=== PATIENT | female | born 1990 | race African-American/Black ===

== ENCOUNTER 2016-03-07 10:56 | Emergency (ER) | payer MEDICAID ==
[2016-03-07 11:06] VITALS: BP 131/74
--- NOTE | 2016-03-07 11:43 | ER Document Report ---
ED Medical Screen (RME) - General Chief Complaint: Pain With Urination Stated Complaint: POSSIBLE UTI Time seen by provider: 11:41 Mode of Arrival: Ambulatory Information source: Patient Notes: 25 yo female presents to ed for frequency urgency and burning today is second day. TRAVEL OUTSIDE OF THE [place] IN LAST 30 DAYS: No - HPI Onset: Yesterday Onset/Duration: Gradual, Worse Quality of pain: Burning Associated Symptoms: Other - urinary symptoms Exacerbated by: Other - urinaiton - Related Data Allergies/Adverse Reactions: No Known Allergies Allergy (Verified 03/07/16 11:07) Past Medical History Past Surgical History: Reports: Hx Orthopedic Surgery - L knee - Immunizations Hx Diphtheria, Pertussis, Tetanus Vaccination: No Physical Exam - Vital signs Vitals: Temp Pulse Resp BP Pulse Ox 98.1 F 89 18 131/74 H 100 03/07/16 11:05 03/07/16 11:05 03/07/16 11:05 03/07/16 11:05 03/07/16 11:05 Course - Vital Signs Vital signs: Temp Pulse Resp BP Pulse Ox 98.1 F 89 18 131/74 H 100 03/07/16 11:05 03/07/16 11:05 03/07/16 11:05 03/07/16 11:05 03/07/16 11:05
[2016-03-07 12:17] LABS: APPEARANCE,URINE CLEAR; BILIRUBIN,URINE NEGATIVE (NEGATIVE); GLUCOSE, URINE NEGATIVE (NEGATIVE); KETONES,URINE NEGATIVE (NEGATIVE); LEUKOCYTE ESTERASE,URINE MODERATE (NEGATIVE); NITRITE,URINE NEGATIVE (NEGATIVE); PROTEIN,URINE NEGATIVE (NEGATIVE); URINE SPECIFIC GRAVITY 1.004; UROBILINOGEN,URINE NEGATIVE mg/dL (<2.0)
[2016-03-07] MEDS ORDERED: PHENAZOPYRIDINE HCL 200 MG TABLET PO ONE (13:31)
--- NOTE | 2016-03-07 13:34 | ER Document Report ---
HPI - HPI Patient complains to provider of: pain with urination Onset: Yesterday Onset/Duration: Gradual, Persistent Quality of pain: Burning Pain Level: 5 Associated Symptoms: Other - Pain with urination Exacerbated by: Other - Urination Relieved by: Denies Similar symptoms previously: Yes Recently seen / treated by doctor: No - ROS ROS below otherwise negative: Yes - CONSTITUTIONAL Constitutional: DENIES: Fever, Chills - EENT EENT: DENIES: Sore Throat, Ear Pain, Nasal Drainage-Clear, Nasal Drainage- Purulent, Congestion, Eye problems - NEURO Neurology: DENIES: Headache, Weakness, Vision blurred, Dizzinesss / Vertigo - CARDIOVASCULAR Cardiovascular: DENIES: Chest pain - RESPIRATORY Respiratory: DENIES: Trouble Breathing, Coughing - GASTROINTESTINAL Gastrointestinal: DENIES: Abdominal Pain, Nausea, Patient vomiting, Diarrhea, Constipation, Black / Bloody Stools - URINARY Urinary: REPORTS: Dysuria - REPRODUCTIVE Reproductive: REPORTS: : - MUSCULOSKELETAL Musculoskeletal: DENIES: Extremity pain, Back Pain, Neck Pain, Swelling - DERM Skin Color: Normal Skin Problems: None - NURSING COMMENTS Comment: patient reports havin pain with urination and shalini low abd pain Past Medical History - General Information source: Patient - Social History Smoking Status: Current Every Day Smoker Cigarette use (# per day): Yes - 4 cigarettes a day Chew tobacco use (# tins/day): No Smoking Education Provided: Yes - less than 1 minute Frequency of alcohol use: Rare Drug Abuse: None Occupation: [employer] Lives with: Parents Family History: Hypertension - Medical History Medical History: Negative - Past Medical History Cardiac Medical History: Reports: None Pulmonary Medical History: Reports: None EENT Medical History: Reports: None Neurological Medical History: Reports: None Endocrine Medical History: Reports: None Renal/ Medical History: Reports: None Malignancy Medical History: Reports: None GI Medical History: Reports: None Musculoskeltal Medical History: Reports Hx Musculoskeletal Deformity, Reports Hx Musculoskeletal Trauma Skin Medical History: Reports None Traumatic Medical History: Reports: None Infectious Medical History: Reports: None Past Surgical History: Reports: Hx Orthopedic Surgery - L knee - Immunizations Hx Diphtheria, Pertussis, Tetanus Vaccination: No Vertical Provider Document - CONSTITUTIONAL Agree With Documented VS: Yes Exam Limitations: No Limitations General Appearance: WD/WN - INFECTION CONTROL TRAVEL OUTSIDE OF THE [place] IN LAST 30 DAYS: No - HEENT HEENT: Atraumatic, Normal ENT Exam, Normocephalic, PERRLA - NECK Neck: Normal Inspection, Supple - RESPIRATORY Respiratory: Breath Sounds Normal, No Respiratory Distress O2 Sat by Pulse Oximetry: 100 - CARDIOVASCULAR Cardiovascular: Regular Rate, Regular Rhythm - GI/ABDOMEN Gastrointestinal: Abdomen Soft, Abdomen Tender, No Organomegaly - Suprapubic, Normal Bowel Sounds - REPRODUCTIVE Female Genitalia: Normal Inspection - BACK Back: Normal Inspection - MUSCULOSKELETAL/EXTREMETIES Musculoskeletal/Extremeties: MAEW, FROM, Non-Tender - NEURO Level of Consciousness: Awake, Alert, Appropriate Motor/Sensory: No Motor Deficit, No Sensory Deficit, No Pronator Drift - DERM Integumentary: Warm, Dry, No Rash Course - Vital Signs Vital signs: Temp Pulse Resp BP Pulse Ox 98.1 F 89 18 131/74 H 100 03/07/16 11:05 03/07/16 11:05 03/07/16 11:05 03/07/16 11:05 03/07/16 11:05 - Laboratory Laboratory results interpreted by me: 03/07/16 11:52 Ur Leukocyte Esterase MODERATE H Discharge - Discharge Clinical Impression: UTI (urinary tract infection) Qualifiers: Urinary tract infection type: site unspecified Hematuria presence: without hematuria Qualified Code(s): N39.0 - Urinary tract infection, site not specified Condition: Stable Disposition: HOME, SELF-CARE Additional Instructions: URINARY TRACT INFECTION: Your evaluation indicates that you have a urinary tract infection. This is due to germs growing in the bladder. This is a common problem. This infection usually responds quickly to antibiotics. Your antibiotic should be taken exactly as prescribed. Drink plenty of fluids -- three to four quarts a day. Occasionally, a bladder anesthetic will be prescribed to help stop the feeling of urgency until the antibiotic has a chance to clear the infection. This may cause your urine to be dark orange. Certain urine infections require a culture. If the doctor obtained a culture, the results will be back in two days. You should call to see if a change in treatment is needed. A repeat urinalysis after you finish treatment is often recommended. The physician will let you know if further testing is required. Call the doctor if you develop fever, chills, flank pain, inability to urinate, or blood in the urine. NITROFURANTOIN (MACRODANTIN, MACROBID): You have received a prescription for nitrofurantoin (Macrodantin). This antibiotic is used for urinary tract infections. Women who are or nursing should notify the physician before taking this medicine. If you have ever had a problem caused by this medication in the past, be sure the physician is aware of it. Common side effects of this medicine include nausea, vomiting, or decreased appetite. Notify your physician if these side effects become severe. Immediately stop this medicine and call the physician if you develop cough , shortness of breath, chest pain, weakness, jaundice (yellow color of the skin and whites of the eyes), or a skin rash. URINARY ANESTHETIC AGENT: You have been given a medication (Pyridium) for urinary tract discomfort. This medicine numbs the lining of the bladder and urethra, resulting in less pain, burning, and urgency. You may take it as needed, according to instructions. When the symptoms resolve, you can stop this medication (be sure to continue any other medications the doctor has given you). This medicine turns the urine a dark orange. It may stain underwear. Occasionally, it can cause nausea. Return for evaluation if there are any unexpected effects, such as itching, hives, or shortness of breath. FOLLOW-UP CARE: If you have been referred to a physician for follow-up care, call the physician s office for an appointment as you were instructed or within the next two days. If you experience worsening or a significant change in your symptoms, notify the physician immediately or return to the Emergency Department at any time for re-evaluation. Prescriptions: Nitrofurantoin/Nitrofuran Mac [Macrobid 100 mg Capsule] 1 tab PO BID #20 capsule Phenazopyridine HCl [Pyridium 200 mg Tablet] 200 mg PO TID #15 tablet Forms: Return to Work Referrals: JEANNA DANG MD [Primary Care Provider] - Follow up as needed
== END 2016-03-07 13:42 | disposition home or self-care (01) ==
LOC: ER 10:56
DX: N39.0 Urinary tract infection, site not specified (principal); R30.0 Dysuria; R10.30 Lower abdominal pain, unspecified; F17.210 Nicotine dependence, cigarettes, uncomplicated
CPT/HCPCS: 99283; 87086; 81025; 87088; 81001; 87186; J3490

== ENCOUNTER → 2017-03-13 | Outpatient (CLI) | payer SELFPAY ==
--- NOTE | 2017-03-13 16:36 | RADIOLOGY REPORT (SQ) ---
EXAM DESCRIPTION: U/S OB TRANSVAGINAL W/O DOP COMPLETED DATE/TIME: 03/13/2017 1:30 pm REASON FOR STUDY: 1ST TRIMESTER SIZE AND DATE Z34.81 ENCOUNTER FOR SUPRVSN OF NORMAL , FIR ST TRIM COMPARISON: None. TECHNIQUE: Transvaginal static and realtime grayscale images acquired of the pelvis. Additional amaris cted spectral and color Doppler images recorded. All images stored on PACs. bHCG: Not available LIMITATIONS: None. FINDINGS: FETUS: Living intrauterine . EGA: 8 weeks 6 days YAQUELIN: 10/17/2017 FHR: 173 beats per minute. SUBCHORIONIC BLEED: No SIZE OF BLEED: Not applicable. UTERUS: No masses. No anomalies. CERVICAL LENGTH: 2.9 cm Closed. RIGHT ADNEXA: Normal ovary with normal vascular flow. Small cyst is identified measuring 2.1 x 1.7 x 1.7 cm most consistent with a corpus lutein cyst. No free fluid is seen. LEFT ADNEXA: Normal ovary with normal vascular flow. No adnexal free fluid. No adnexal masses. FREE FLUID: None. OTHER: No other significant finding. IMPRESSION: LIVING INTRAUTERINE . EGA 8 weeks 6 days Trimester of : First - 0 to 13 weeks. TECHNICAL DOCUMENTATION: JOB ID: [id number] [employer]- All Rights Reserved
== END ==
LOC: RAD 12:30
PROVIDERS: ATTEND Nurse Practitioner Women's Health
DX: Z34.81 Encounter for supervision of other normal pregnancy, first trimester (principal)
CPT/HCPCS: 76817

== ENCOUNTER 2017-03-22 13:55 | Emergency (ER) | payer SELFPAY ==
--- NOTE | 2017-03-22 16:15 | ER Document Report ---
ED GI/ - General Chief Complaint: Vag Bleeding, +preg <12wks Stated Complaint: VAGINAL BLEEDING,BACK PAIN Time Seen by Provider: 03/22/17 16:06 Notes: Patient is a 9-1/2 weeks 26-year-old female presented emergency department with a chief complaint of vaginal bleeding that started last night. She describes the amount as light spotting today and it is approximately 1-2 tablespoons last night. She denies bleeding through multiple pads. Patient states that she did go to the health department today for evaluation related to Pap smear and exam at that is anything significant. She states she came here to have an ultrasound to confirm that her child still alive and that she is not having a miscarriage. She admits to mild pelvic cramping and mild back pain but has not taken anything for it. She denies any pyuria, hematuria, urinary frequency, urinary urgency. Admits intermittent nausea but she states that this is been normal for her entire . otherwise healthy female. 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 IN LAST 30 DAYS: No - Related Data Allergies/Adverse Reactions: No Known Allergies Allergy (Verified 03/22/17 13:58) Past Medical History - Social History Smoking Status: Never Smoker Family History: Hypertension Musculoskeltal Medical History: Reports Hx Musculoskeletal Deformity, Reports Hx Musculoskeletal Trauma Past Surgical History: Reports: Hx Orthopedic Surgery - L knee - Immunizations Hx Diphtheria, Pertussis, Tetanus Vaccination: No Review of Systems - Review of Systems Constitutional: No symptoms reported Cardiovascular: No symptoms reported Respiratory: No symptoms reported Gastrointestinal: See HPI Female Genitourinary: See HPI Skin: See HPI Physical Exam - Vital signs Vitals: Temp Pulse Resp BP Pulse Ox 99.2 F 88 18 142/81 H 100 03/22/17 14:03 03/22/17 14:03 03/22/17 14:03 03/22/17 14:03 03/22/17 14:03 - Notes Notes: PHYSICAL EXAM GENERAL: Alert, interacts well. HEAD: Normocephalic, atraumatic. LUNGS: Clear to auscultation bilaterally, no wheezes, rales, or rhonchi. No respiratory distress. HEART: Regular rate and rhythm. No murmurs, gallops, or rubs. ABDOMEN: Soft, nondistended, nontender. No guarding, rebound, or rigidity.. Bowel sounds present in all 4 quadrants. Female exam deferred EXTREMITIES: Moves all 4 extremities spontaneously. No edema, radial and dorsalis pedis pulses 2/4 bilaterally. No cyanosis. NEUROLOGICAL: Alert and oriented x4. Normal speech. PSYCH: Normal affect, normal mood. SKIN: Warm, dry, normal turgor. No rashes or lesions noted. Course - Re-evaluation Re-evalutation: 03/22/17 18:59 patient is a 26-year-old female is hemodynamically stable, no acute distress and afebrile.declined additional blood tests and she does have blood work done earlier. Given that she had low suspicion for Hemorrhage versus infection,beta- hCG, urine and transvaginal ultrasound were ordered. Transvaginal ultrasound shows a healthy intrauterine at 10 weeks with a heart rate of 168 and a small subchorionic hemorrhage. Urinalysis clean. Otherwise patient's vitals were stable the patient is stable for discharge to follow-up with the health department as scheduled - Vital Signs Vital signs: Temp Pulse Resp BP Pulse Ox 98.7 F 80 18 130/66 H 99 03/22/17 19:39 03/22/17 19:39 03/22/17 19:39 03/22/17 19:39 03/22/17 19:39 - Laboratory Laboratory results interpreted by me: 03/22/17 03/22/17 16:25 16:35 Beta HCG, Quant 36568.00 H Urine Urobilinogen 2.0 H Urine Ascorbic Acid 40 H - Diagnostic Test Radiology reviewed: Reports reviewed Discharge - Discharge Clinical Impression: Vaginal bleeding before 22 weeks gestation Condition: Good Disposition: HOME, SELF-CARE Additional Instructions: : You are . care is best started as early in as possible. If you're unsure about continuing this , you should discuss this with your physician or with cash register balancer at [facility]. You should take only medications approved by your physician. Acetaminophen can safely be taken for minor pains. As a rule, medication for chronic conditions such as asthma or seizures can safely be continued. You should discuss with the physician every medicine you take. Any regular exercise program can be continued. Talk to your physician, however, before engaging in competitive or demanding sports. Alcohol, smoking, and "street drugs" are dangerous to your baby. Cocaine is especially dangerous. Don't use any illicit drugs! BLEEDING DURING EARLY : You have been evaluated for passing blood while . While we take this symptom very seriously, most women with your degree of bleeding will go on to have a perfectly normal baby. At this time, there is no indication that a miscarriage will occur. (A miscarriage occurs when the fetus is abnormal. There is no medicine or treatment to prevent it.) A more serious cause of bleeding is tubal (or ectopic) . An ultrasound usually can show whether the is in the uterus or in the tube. Sometimes in early , no fetus is seen. In this case, careful follow-up, including repeat blood tests and repeat ultrasound, is necessary. Do not douche or have sex for at least a week, or until OK'd by the doctor. Don't use tampons. Call the doctor or return for re-examination if there is an increase in bleeding or cramping, extreme weakness, fainting, new abdominal pain, fever, or passage of tissue. FOLLOW-UP CARE: If you have been referred to a physician for follow-up care, call the physician s office for an appointment as you were instructed or within the next two days. If you experience worsening or a significant change in your symptoms (very heavy bleeding with large clots of blood, passage of tissue, more severe abdominal / pelvic pain or cramping, feeling faint or severe weakness, fever, etc.), notify the physician immediately or return to the Emergency Department at any time for re-evaluation. OBSTETRIC-GYNECOLOGIC (OB-PRESS SET UP PERSON) PHYSICIANS IN [place]: [facility] [address] [place] [address] [phone] Forms: Return to Work Referrals: [facility] [NO LOCAL MD] - Follow up as needed (as scheduled)
[2017-03-22 17:26] LABS: APPEARANCE,URINE SLIGHTLY-CLOUDY; BILIRUBIN,URINE NEGATIVE (NEGATIVE); COLOR,URINE YELLOW; GLUCOSE, URINE NEGATIVE (NEGATIVE); KETONES,URINE NEGATIVE (NEGATIVE); LEUKOCYTE ESTERASE,URINE NEGATIVE (NEGATIVE); NITRITE,URINE NEGATIVE (NEGATIVE); PROTEIN,URINE NEGATIVE (NEGATIVE); URINE SPECIFIC GRAVITY 1.031
--- NOTE | 2017-03-22 18:31 | RADIOLOGY REPORT (SQ) ---
EXAM DESCRIPTION: U/S OB TRANSVAGINAL W/O DOP COMPLETED DATE/TIME: 03/22/2017 6:19 pm REASON FOR STUDY: vaginal bleeding, 9 weeks COMPARISON: None. TECHNIQUE: Transvaginal static and realtime grayscale images acquired of the pelvis. Additional amaris cted spectral and color Doppler images recorded. All images stored on PACs. [id number] LIMITATIONS: None. FINDINGS: FETUS: Living intrauterine . EGA: 10 weeks 0 days YAQUELIN: 10/18/2017 FHR: 168 beats per minute. SUBCHORIONIC BLEED: Yes SIZE OF BLEED: 11 x 5 x 4 mm UTERUS: No masses. No anomalies. CERVICAL LENGTH: 3.3 cm Closed. RIGHT ADNEXA: Normal ovary with normal vascular flow. No adnexal free fluid. Simple cyst(s) measuring 1.6 cm. LEFT ADNEXA: Normal ovary with normal vascular flow. No adnexal free fluid. No adnexal masses. FREE FLUID: None. OTHER: No other significant finding. IMPRESSION: LIVING INTRAUTERINE with small subchorionic bleed. EGA 10 weeks 0 days Trimester of : First - 0 to 13 weeks. TECHNICAL DOCUMENTATION: JOB ID: [id number] [employer]- All Rights Reserved
[2017-03-22 19:43] VITALS: BP 130/66
== END 2017-03-22 19:43 | disposition home or self-care (01) ==
LOC: ER 13:55
DX: O46.91 Antepartum hemorrhage, unspecified, first trimester (principal); R10.2 Pelvic and perineal pain; M54.9 Dorsalgia, unspecified; R11.0 Nausea; Z3A.09 9 weeks gestation of pregnancy
CPT/HCPCS: 36415; 76817; 81001; 84702; 86900; 86901; 99284

== ENCOUNTER → 2017-03-29 | Outpatient (CLI) | payer MEDICAID ==
--- NOTE | 2017-03-29 14:45 | RADIOLOGY REPORT (SQ) ---
EXAM DESCRIPTION: U/S [id number] TRNABD 1GES W/ODOP COMPLETED DATE/TIME: 03/29/2017 2:27 pm REASON FOR STUDY: ENCOUNTER FOR SUPERVISION OF OTHER NORMAL , FIRST TRIMESTER Z34.81 ENCOU NTER FOR SUPRVSN OF NORMAL , FIRST TRIM COMPARISON: OB ultrasound 03/13/2017, 03/22/2017 TECHNIQUE: Transabdominal static and realtime grayscale images acquired of the pelvis. Additional se lected spectral and color Doppler images recorded. All images stored on PACs. bHCG: Not available LIMITATIONS: None. FINDINGS: FETUS: Living intrauterine . EGA: 10 weeks 3 days YAQUELIN: 10/22/2017 FHR: 165 beats per minute. SUBCHORIONIC BLEED: No SIZE OF BLEED: Not applicable. UTERUS: No masses. No anomalies. Uterus is 8.6 x 5.5 x 7.2 cm size CERVICAL LENGTH: 3.3 cm, Closed. RIGHT ADNEXA: Not visualized due to adnexal bowel gas LEFT ADNEXA: Not visualized due to adnexal bowel gas FREE FLUID: None. OTHER: No other significant finding. IMPRESSION: LIVING INTRAUTERINE . EGA of 10 weeks 3 days Trimester of : First - 0 to 13 weeks. TECHNICAL DOCUMENTATION: JOB ID: [id number] [employer]- All Rights Reserved
== END ==
LOC: RAD 13:48
PROVIDERS: ATTEND Nurse Practitioner Women's Health
DX: Z34.81 Encounter for supervision of other normal pregnancy, first trimester (principal)
CPT/HCPCS: 76801

== ENCOUNTER 2017-07-07 19:17 | Emergency (ER) | payer MEDICAID ==
[2017-07-07] MEDS ORDERED: ACETAMINOPHEN 325 MG TABLET PO ONE (19:23)
--- NOTE | 2017-07-07 19:33 | ER Document Report ---
HPI - HPI Pain Level: 4 Notes: Patient is a 27-year-old female with no significant past medical history is approximately 25 weeks who presents to the ED complaining of lateral ankle pain status post injury. Patient states that over the last few days she rolled her ankle twice with the last one being last night. Patient states that she has noticed swelling to the lateral ankle, but is still ambulatory with a limp. She has no other concerns or complaints at this time. Pain does not radiate. Denies any drug allergies. Denies any smoking or IV drug use. Denies any headache, fever, URI, sore throat, chest pain, palpitations, syncope , cough, shortness of breath, wheeze, dyspnea, abdominal pain, nausea/vomiting/ diarrhea, urinary retention, dysuria, hematuria, numbness/tingling, muscle paralysis/weakness, or rash. - ROS Systems Reviewed and Negative: Yes All other systems reviewed and negative - REPRODUCTIVE LMP: 25 weeks Reproductive: REPORTS: : Past Medical History - Social History Smoking Status: Never Smoker Family History: Hypertension Renal/ Medical History: Denies: Hx Peritoneal Dialysis Musculoskeltal Medical History: Reports Hx Musculoskeletal Deformity, Reports Hx Musculoskeletal Trauma Past Surgical History: Reports: Hx Orthopedic Surgery - L knee - Immunizations Hx Diphtheria, Pertussis, Tetanus Vaccination: No Vertical Provider Document - CONSTITUTIONAL Agree With Documented VS: Yes Notes: PHYSICAL EXAMINATION: GENERAL: Well-appearing, well-nourished and in no acute distress. LUNGS: Breath sounds clear to auscultation bilaterally and equal. No wheezes rales or rhonchi. HEART: Regular rate and rhythm without murmurs, rubs, gallops. Musculoskeletal: Lt ankle: + mild swelling to the lateral ankle w/o ecchymosis. LROM to passive/active dorsiflexion. Strength 5+/5. N/V intact distal. + tenderness to the medial malleolus and area of the ATFL. No bony tenderness of the foot. Achilles intact. Extremities: No cyanosis, clubbing, or edema b/l. Peripheral pulses 2+. Capillary refill less than 3 seconds. NEUROLOGICAL: Normal speech, limping gait. Normal sensory, motor exams PSYCH: Normal mood, normal affect. SKIN: Warm, Dry, normal turgor, no rashes or lesions noted. - INFECTION CONTROL TRAVEL OUTSIDE OF THE [place] IN LAST 30 DAYS: No Course - Re-evaluation Re-evalutation: 07/07/17 19:50 Patient is an afebrile, well-hydrated, 27-year-old female who presents to the ED with left ankle pain, suspect sprain versus strain. Vitals are acceptable. PE is otherwise unremarkable for any neurovascular compromise, obvious tendon/ ligament rupture, obvious fracture/dislocation, septic joint. X-ray was unremarkable for any acute pathology. Tylenol given p.o. today. No other labs or imaging warranted at this time based on H&P. Ankle stirrup splint given today. Patient declined crutches. Recommend conservative measures otherwise for symptoms. Recheck with your PCM in 3-5 days. Consider consult with orthopedic/physical therapy. Return to the ED with any worsening/concerning symptoms otherwise as reviewed discharge. Patient is in agreement. Discharge - Discharge Clinical Impression: Left ankle pain Qualifiers: Chronicity: acute Qualified Code(s): M25.572 - Pain in left ankle and joints of left foot Condition: Stable Disposition: HOME, SELF-CARE Instructions: Ankle Stirrup Splint ([facility]), Ice & Elevation ([facility]) Additional Instructions: Rest, Ice, Compression, Elevation Use splint as directed Tylenol/ibuprofen as needed Light stretches daily Strength exercises as able Moist heat and massage may help F/u with your PCP in 3-5 days for a recheck Consider consult(s) with Orthopedics/physical therapy for ongoing/worsening symptoms Return to the ED with any worsening symptoms and/or development of fever, headache, chest pain, palpitations, syncope, shortness of breath, trouble breathing, abdominal pain, n/v/d, muscle weakness/paralysis, numbness/tingling, swelling, redness, or other worsening symptoms that are concerning to you. Referrals: [facility] ([facility]) [Provider Group] - Follow up as needed
--- NOTE | 2017-07-07 19:40 | RADIOLOGY REPORT (SQ) ---
EXAM DESCRIPTION: ANKLE LEFT COMPLETE COMPLETED DATE/TIME: 07/07/2017 7:33 pm REASON FOR STUDY: injury COMPARISON: None. NUMBER OF VIEWS: Three views. TECHNIQUE: AP, lateral, and oblique radiographic images acquired of the left ankle. LIMITATIONS: None. FINDINGS: MINERALIZATION: Normal. BONES: No acute fracture or dislocation. No worrisome bone lesions. JOINTS: No effusions. SOFT TISSUES: No soft tissue swelling. No foreign body. OTHER: No other significant finding. IMPRESSION: NEGATIVE STUDY OF THE LEFT ANKLE. NO RADIOGRAPHIC EVIDENCE OF ACUTE INJURY. TECHNICAL DOCUMENTATION: JOB ID: [id number] [employer]- All Rights Reserved Reading location - IP/workstation name: [email or web address]
== END 2017-07-07 20:03 | disposition home or self-care (01) ==
LOC: ER 19:17
DX: O99.89 Other specified diseases and conditions complicating pregnancy, childbirth and the puerperium (principal); M25.572 Pain in left ankle and joints of left foot; M25.472 Effusion, left ankle; X50.1XXA Overexertion from prolonged static or awkward postures, initial encounter; Z3A.15 15 weeks gestation of pregnancy; O26.892 Other specified pregnancy related conditions, second trimester
CPT/HCPCS: 99283; 73610; L1902; J3490

== ENCOUNTER 2017-09-16 05:31 | Outpatient (CLI) | payer MEDICAID ==
[2017-09-16 05:52] LABS: APPEARANCE,URINE CLEAR; BILIRUBIN,URINE NEGATIVE (NEGATIVE); COLOR,URINE YELLOW; GLUCOSE, URINE NEGATIVE (NEGATIVE); KETONES,URINE NEGATIVE (NEGATIVE); LEUKOCYTE ESTERASE,URINE NEGATIVE (NEGATIVE); NITRITE,URINE NEGATIVE (NEGATIVE); PROTEIN,URINE NEGATIVE (NEGATIVE); URINE SPECIFIC GRAVITY 1.012; UROBILINOGEN,URINE NEGATIVE mg/dL (<2.0)
[2017-09-16 06:06] LABS: URINE AMPHETAMINES SCREEN NEGATIVE; URINE BARBITURATES SCREEN NEGATIVE; URINE BENZODIAZEPINES SCREEN NEGATIVE; URINE COCAINE SCREEN NEGATIVE; URINE MARIJUANA (THC) SCREEN NEGATIVE; URINE METHADONE SCREEN NEGATIVE; URINE PHENCYCLIDINE SCREEN NEGATIVE
== END 2017-09-16 06:54 | disposition home or self-care (01) ==
LOC: LC 05:31
PROVIDERS: ATTEND Obstetrics & Gynecology Gynecology
PROC: 4A1HXCZ Monitoring of Products of Conception, Cardiac Rate, External Approach (ICD-10-PCS; principal; 2017-09-16)
DX: Z34.93 Encounter for supervision of normal pregnancy, unspecified, third trimester (principal)
CPT/HCPCS: 59025; 80307; 81001

== ENCOUNTER 2017-09-30 22:29 | Inpatient (IN) | payer MEDICAID ==
[2017-09-30] MEDS ORDERED: LIDOCAINE 1% INJ-PF (10 MG/ML) 30 ML SDV ONE (22:41)
[2017-09-30] MEDS ORDERED: OXYTOCIN/NORMAL SALINE 20 UNIT/1,000 ML RTUINJ ONE (22:41)
[2017-09-30] MEDS ORDERED: MISOPROSTOL 0.2 MG TABLET ONE (22:41)
[2017-09-30] MEDS ORDERED: PENICILLIN G-K 5 MILLION UNIT VIAL ONE (22:44)
[2017-09-30] MEDS ORDERED: RINGERS SOLUTION,LACTATED 1,000 ML IV PRN (23:14)
[2017-09-30] MEDS ORDERED: RINGERS SOLUTION,LACTATED 1,000 ML IV ONE (23:14)
[2017-09-30] MEDS ORDERED: PENICILLIN G POTASSIUM 5,000,000 UNIT in DEXTROSE 5%-WATER 100 ML IV ONE (23:14)
[2017-09-30 23:20] LABS: ABSOLUTE EOSINOPHILS # (AUTO) 0.1 10^3/uL (0.0-0.6); ABSOLUTE LYMPHOCYTES (AUTO) 2.8 10^3/uL (0.5-4.7); ABSOLUTE MONOCYTES (AUTO) 0.6 10^3/uL (0.1-1.4); ABSOLUTE NEUT (AUTO) 5.9 10^3/uL (1.7-8.2); BASOPHILS % (AUTO) 0.3 % (0-2); EOSINOPHILS % (AUTO) 0.6 % (0-6); HEMATOCRIT 32.4 % (36.0-47.0); HEMOGLOBIN 10.9 g/dL (12.0-15.5); LYMPHOCYTES % (AUTO) 29.7 % (13-45); MEAN CORPUSCULAR HEMOGLOBIN 29.4 pg (27.0-33.4); MEAN CORPUSCULAR HGB CONC 33.8 g/dL (32.0-36.0); MEAN CORPUSCULAR VOLUME 87 fl (80-97); MONOCYTES % (AUTO) 6.7 % (3-13); PLATELET COUNT 259 10^3/uL (150-450); RED BLOOD COUNT 3.73 10^6/uL (3.72-5.28); RED CELL DISTRIBUTION WIDTH 13.3 % (11.5-14.0); SEGMENTED NEUTROPHILS % (AUTO) 62.7 % (42-78); TOTAL CELLS COUNTED % (AUTO) 100 %; WHITE BLOOD COUNT 9.5 10^3/uL (4.0-10.5)
[2017-09-30] MEDS ORDERED: PSEUDOEPHEDRINE HCL 30 MG TABLET PO PRN (23:35)
[2017-09-30] MEDS ORDERED: PROMETHAZINE HCL 25 MG TABLET PO PRN (23:35)
[2017-09-30] MEDS ORDERED: HYDROCODONE/ACETAMINOPHEN 5-325 MG TABLET PO PRN (23:35)
[2017-09-30] MEDS ORDERED: NA PHOS,M-B/NA PHOS,DI-BA (ADULT) 133 ML ENEMA PR PRN (23:35)
[2017-09-30] MEDS ORDERED: OXYTOCIN/NORMAL SALINE 20 UNIT/1,000 ML RTUINJ IV PRN (23:35)
[2017-09-30] MEDS ORDERED: DIPH/PERTUSS(ACELL)/TETANUS VAC/PF 0.5 ML SYR (>=10YO) IM PRN (23:35)
[2017-09-30] MEDS ORDERED: PROMETHAZINE HCL INJ 25 MG/1 ML VIAL IV PRN (23:35)
[2017-09-30] MEDS ORDERED: DIBUCAINE 1% OINTMENT 28 GM TP PRN (23:35)
[2017-09-30] MEDS ORDERED: ACETAMINOPHEN WITH CODEINE #3 TABLET PO PRN ×2 (23:35)
[2017-09-30] MEDS ORDERED: MAGNESIUM HYDROXIDE SUSP 30 ML UDCUP PO PRN (23:35)
[2017-09-30] MEDS ORDERED: MEASLES,MUMPS&RUBELLA VACC/PF 0.5 ML VIAL SUBCUT PRN (23:35)
[2017-09-30] MEDS ORDERED: GLYCERIN/WITCH HAZEL LEAF 1 EACH MED..PAD TP PRN (23:35)
[2017-09-30] MEDS ORDERED: BENZOCAINE/MENTHOL AEROSOL SPRAY 56 ML TOP PRN (23:35)
[2017-09-30] MEDS ORDERED: PROMETHAZINE HCL 25 MG SUPP.RECT PR PRN (23:35)
[2017-09-30] MEDS ORDERED: ACETAMINOPHEN 650 MG SUPP.RECT PR PRN (23:35)
[2017-09-30] MEDS ORDERED: DIPHENHYDRAMINE HCL 25 MG CAPSULE PO PRN (23:35)
[2017-09-30] MEDS ORDERED: ZOLPIDEM TARTRATE 5 MG TABLET PO PRN (23:35)
--- NOTE | 2017-09-30 23:39 | Admission Physical ---
Datetime Report Generated by CPN: 09/30/2017 23:39 CURRENT ADMISSION Chief Complaint: Uterine Contractions Chief Complaint Other: contractions Admit Impression : Term, Intrauterine Admit Plan: Admit to Unit; Initiate Labor Protocol Admit Plan- Other: 1. anticipate 2. gbs positive- treat ALLERGIES Medication Allergies: No Medication Allergies: No Known Allergies (09/30/2017) Latex: No Latex Allergies Food Allergies: none Environmental Allergies: none OBSTETRICAL HISTORY EDC: 10/19/2017 00:00 : 3 Para: 1 Term: 0 : 1 SAB: 0 IAB: 0 Ectopic: 0 Livin Cesareans: 0 VBACs: 0 Multiple Births: 0 Gestational Diabetes: No Rh Sensitization: No Incompetent Cervix: No MELVA: No Infertility: No ART Treatment: No Uterine Anomaly: No IUGR: No Hx Previous C/S: No Macrosomia: No Hx Loss/Stillborn: No PIH: No Hx : No Placenta Previa/Abruption: No Depression/PP Depression: No PTL/PROM: Yes Post Hemorrhage: No Current Procedures: Ultrasound Obstetrical History Comments: - 2012 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 [id number] MEDICAL HISTORY Diabetes: No Blood Transfusion: No Pulmonary Disease (Asthma, TB): No Breast Disease: No Hypertension: No [employer]gr[employer] Internship Surgery: No Heart Disease: No Hosp/Surgery: Yes Autoimmune Disorder: No Anesthetic Complications: No Kidney Disease: No Abnormal Pap Smear: Yes Neuro/Epilepsy: No Psychiatric Disorders: No Other Medical Diseases: No Hepatitis/Liver Disease: No Significant Family History: No Varicosities/Phlebitis: No Trauma/Violence : No Thyroid Dysfunction: No Medical History Comments: childbirth, abnormal pap in 2018- cleared INFECTIOUS HISTORY Gonorrhea: No Genital Herpes: No Chlamydia: Yes Tuberculosis: No Syphilis: No Hepatitis: No HIV/AIDS Exposure: No Rash or Viral Illness: No HPV: Yes Infectious History Comments: chlamydia 2018, [place] (Annotations: Data stored by [facility] on behalf of user) PHYSICAL EXAM General: Normal HEENT: Normal Neurologic: Normal Thyroid: Normal Heart: Normal Lungs: Normal Breast: Normal Back: Normal Abdomen: Normal Genitourinary Exam: Normal Extremities: Normal DTRs: Normal Pelvic Type: Adequate Physical Exam Comments: elevated blood pressure likely pain controlled in active labor. VAGINAL EXAM Dilatation: 10 Effacement: 100 Station: 2 MEMBRANES Membranes: Intact FETUS A EGA: 37.2 Monitoring: External US FHR- Baseline: 150 Decelerations: Variable FHR Category: Category I Presentation: Vertex PLANS FOR LABOR AND DELIVERY Labor and Delivery: None Pain Management: Natural Feeding Preference: Breast Benefit of Breast Feed Discussed: Yes Circumcision: Yes INFORMED CONSENT Signature: with User ID: [email or web address]
--- NOTE | 2017-09-30 23:51 | PDOC DELIVERY SUMMARY ---
Delivery Summary - Maternal Hx : III Hx Para: I Hx # Term Pregnancies: 1 - 37 weeks 4 days. 6 lbs 14 oz male. uncomplicated Hx # Pregnancies: 1 - IUFD at 24 weeks. vaginal delivery. due to cord accident Hx Total # of Abortions (Sponateous & Elective): 0 Number of Living Children: 1 YAQUELIN: 10/19/17 Gestational Age: 37.2 Risk Factors: Induced HTN - gestational hypertension - no medications during this . Risk Factors/Complications Other:: history of previous IUFD at 24 weeks. GBS positive - precipitous delivery Ruptured Membranes: SROM Time of Rupture: 23:27 Fluids: Clear - Delivery Labor: Precipitous-Less Than 3 Hours Presentation: Vertex Heart Rate Monitoring: Externally Uterine Contraction Monitoring: External Pattern Other: category 1 tracing. rare variable deceleration noted Support Person Present: Yes Location: LD Placenta: Within Normal Limits Placenta Description: normal appearing Number of Vessels (Cord): 3 Nuchal Cord: Yes - 1 loose nuchal cord. Delivery of Placenta Date: 09/30/17 Delivery of Placenta Time: 23:30 Estimated Blood Loss: 200 ml - Medications Type of Anesthesia:: Other - NONE - Assess and Care Baby 1 Male Delivery of Date: 09/30/17 Delivery of Infant Time: 23:27 at 1 minute: 9 at 5 minutes: 9 Skin to Skin: Yes Skin to Skin (Mins): 1 - placed on mothers abdomen upon delivery Condition: stable
[2017-10-01] LABS: ARTERIAL BLOOD BASE EXCESS -0.5 mmol/L; ARTERIAL BLOOD H2CO3 1.72 mmol/L (1.05-1.35); ARTERIAL BLOOD HCO3 27.1 mmol/L (20-26); ARTERIAL BLOOD PCO2 57.2 mmHg (35-45); ARTERIAL BLOOD PH 7.29 (7.35-7.45); ARTERIAL BLOOD TOTAL CO2 28.9 mmol/L (21-25)
[2017-10-01] MEDS ORDERED: HYDROCODONE/ACETAMINOPHEN 5-325 MG TABLET PO PRN (00:30)
--- NOTE | 2017-10-01 01:13 | Warning Signs in Babies ---
VOD Warning Signs Datetime Report Generated by [facility]: 10/01/2017 01:13 VOD#[id number] -Warning Signs in Babies: Needs to be viewed. (08/31/2017 11:36:Mckenna Wilkins RN)
--- NOTE | 2017-10-01 01:45 | Delivery Summary ---
Del Sum A-C Datetime Report Generated by CPN: 10/01/2017 01:45 DELIVERY PERSONNEL DELIVERY PERSONNEL: [id number] Delivery Doctor:: Ngoc Wynn MD Labor and Delivery Nurse:: Whitney Schroeder RNfuneral assistant Nurse:: Mckenna Wilkins RN Nursery Nurse:: Leigh Ann Galicia RN Tool And Die Designer/PRODUCT MANAGEMENT MANAGER: Page Ortiz, ST MATERNAL INFORMATION Delivery Anesthesia: None Medications After Delivery: Pitocin Drip 20 Units/1000ml NSS Estimated Blood Loss (ml): 200 Maternal Complications: Precipitous Labor (<3hrs) LABOR SUMMARY EDC: 10/19/2017 00:00 No. Babies in Womb: 1 Attempted: No Labor Anesthesia: None LABOR INFORMATION Reason for Induction: Not Applicable Onset of Labor: 09/30/2017 21:00 Complete Dilatation: 09/30/2017 23:22 Oxytocin: N/A Group B Beta Strep: POSITIVE Antibiotics # of Doses: 1 Antibiotics Time of Last Dose: 2310 Name of Antibiotic Given: penicillin Steroids Given: None Reason Steroids Not Administered: Not Applicable MEMBRANES Membranes Rupture Method: Spontaneous Rupture of Membranes: 09/30/2017 23:27 Length of Rupture (hr): 0.00 Amniotic Fluid Color: Clear Amniotic Fluid Amount: Scant Amniotic Fluid Odor: Normal STAGES OF LABOR Stage 1 hr: 2 Stage 1 min: 22 Stage 2 hr: 0 Stage 2 min: 5 Stage 3 hr: 0 Stage 3 min: 2 Total Time in Labor hr: 2 Total Time in Labor min: 29 VAGINAL DELIVERY Episiotomy: None Laceration #1: None Laceration Extension #1: N/A Laceration #2: None Laceration Extension #2: N/A Laceration #3: None Laceration Extension #3: N/A Laceration Repair: Not Applicable Sponge Count Correct: Vaginal Sweep Performed Sharps Count Correct: Yes CSECTION DELIVERY Primary Indication: N/A Secondary Indication: N/A CSection Incidence: N/A Labor: N/A Elective: N/A CSection Incision: N/A BABY A INFORMATION Delivery Date/Time: 09/30/2017 23:27 Method of Delivery: Vaginal Born in Route : No : N/A Forceps: N/A Vacuum Extraction: N/A Shoulder Dystocia : No PRESENTATION/POSITION BABY A Presentation: Cephalic Cephalic Presentation: Vertex Vertex Position: Right Occipital Anterior Breech Presentation: N/A PLACENTA INFORMATION BABY A Placenta Delivery Time : 09/30/2017 23:29 Placenta Method of Delivery: Spontaneous Placenta Status: Delivered SCORES BABY A Heart Rate 1 min: >100 bpm Resp Effort 1 min: Good Cry Reflex Irritability 1 min: Cough or Sneeze or Pulls Away Muscle Tone 1 min: Active Motion Color 1 min: Body [place], Extremities Blue Resuscitation Effort 1 min: Tactile Stimulation SCORE 1 MIN: 9 Heart Rate 5 min: >100 bpm Resp Effort 5 min: Good Cry Reflex Irritability 5 min: Cough or Sneeze or Pulls Away Muscle Tone 5 min: Active Motion Color 5 min: Body [place], Extremities Blue SCORE 5 MIN: 9 INFORMATION BABY A Gestational Age at Delivery: 37.2 Gestational Status: Early Term- 37- 38.6 Weeks Outcome : Liveborn Condition : Stable Infant Sex: Male IDENTIFICATION BABY A Verification Date/Time: 10/01/2017 00:13 ID Band Number: [id number] Mother's Name Verified: Yes Infant RN Verifying : b ring, rn Additional Verifying Personnel: e michael, rnc WEIGHT/LENGTH BABY A Birthweight (gm): 2930 Weight (lb): 6 Infant Weight (oz): 7 Infant Length (in): 19.00 Infant Length (cm): 48.26 CORD INFORMATION BABY A No. Cord Vessels: 1 Nuchal Cord : Around Neck x1, Loose Nuchal Cord- Other: 0 True Knot: 0 Infant Suction: Nose ASSESSMENT BABY A Complications: None Physical Findings at Delivery: Other Physical Findings- Other: see nursery assesment Infant Respirations: Appears Normal Skin to Skin: Yes Skin to Skin Time (min): 45 Monument Setter Helper/ALS Called : No Care By: L Galicia, RN Transferred To: Remains with Mother BABY B INFORMATION : N/A SIGNATURES Signature: Electronically signed [place] Ngoc Wynn [place] [place] on 09/30/2017 at 23:40 with User ID: [email or web address]
[2017-10-01 02:26] LABS: URINE AMPHETAMINES SCREEN NEGATIVE; URINE BARBITURATES SCREEN NEGATIVE; URINE BENZODIAZEPINES SCREEN NEGATIVE; URINE COCAINE SCREEN NEGATIVE; URINE MARIJUANA (THC) SCREEN NEGATIVE; URINE METHADONE SCREEN NEGATIVE; URINE PHENCYCLIDINE SCREEN NEGATIVE
[2017-10-01] MEDS ORDERED: PENICILLIN G POTASSIUM 2,500,000 UNIT in DEXTROSE 5%-WATER 50 ML IV SCH (04:00)
[2017-10-01] MEDS: IBUPROFEN 800 MG TABLET PO SCH ×3 (05:11→21:24)
[2017-10-01 07:28] LABS: HEMATOCRIT 28.9 % (36.0-47.0); HEMOGLOBIN 9.7 g/dL (12.0-15.5); MEAN CORPUSCULAR HEMOGLOBIN 29.2 pg (27.0-33.4); MEAN CORPUSCULAR HGB CONC 33.8 g/dL (32.0-36.0); MEAN CORPUSCULAR VOLUME 87 fl (80-97); PLATELET COUNT 242 10^3/uL (150-450); RED BLOOD COUNT 3.34 10^6/uL (3.72-5.28); RED CELL DISTRIBUTION WIDTH 13.4 % (11.5-14.0); WHITE BLOOD COUNT 12.7 10^3/uL (4.0-10.5)
[2017-10-01] MEDS: FAMOTIDINE 20 MG TABLET PO SCH ×2 (09:33→21:24)
[2017-10-01] MEDS: DOCUSATE SODIUM 100 MG CAPSULE PO SCH ×2 (09:33→17:00)
[2017-10-01] MEDS: PRENATAL VITAMIN W DHA CAPSULE PO SCH (09:33)
[2017-10-01] MEDS: FERROUS SULFATE 325 MG TABLET PO SCH ×2 (09:33→17:00)
[2017-10-01] MEDS: SENNOSIDES/DOCUSATE 8.6-50 MG 1 EACH TABLET PO SCH (09:33)
--- NOTE | 2017-10-01 09:38 | PDOC PROGRESS REPORT ---
Subjective-OB Progress Note for:: 10/01/17 Subjective: Doing well, OOB to BR, no c/o Physical Exam (OB) Vital Signs: Temp Pulse Resp BP Pulse Ox 98.5 F 66 16 132/62 H 97 10/01/17 08:28 10/01/17 08:28 10/01/17 08:28 10/01/17 08:28 10/01/17 08:28 Intake & Output 09/30/17 10/01/17 10/02/17 06:59 06:59 06:59 Intake Total 1000 Balance 1000 Weight 108 kg - PIH/Pre-Eclampsia DTR's: 1 + Clonus: Negative Headache: Absent Epigastric Pain: No Visual Changes: No - Lochia Lochia Amount: Scant < 10 ml Lochia Color: Rubra/Red - Abdomen Description: Soft, Round Hernia Present: No Fundal Description: Firm, Midline Fundal Height: u/u - u/2 Objective-Diagnostic Laboratory: 10/01/17 07:16 09/30/17 09/30/17 09/30/17 23:00 23:00 23:28 WBC 9.5 RBC 3.73 Hgb 10.9 L Hct 32.4 L MCV 87 MCH 29.4 MCHC 33.8 RDW 13.3 Plt Count 259 Seg Neutrophils % 62.7 Lymphocytes % 29.7 Monocytes % 6.7 Eosinophils % 0.6 Basophils % 0.3 Absolute Neutrophils 5.9 Absolute Lymphocytes 2.8 Absolute Monocytes 0.6 Absolute Eosinophils 0.1 Absolute Basophils 0.0 Carbonic Acid 1.72 H HCO3/H2CO3 Ratio 15:1 ABG pH 7.29 L ABG pCO2 57.2 H ABG pO2 Not Reportable ABG HCO3 27.1 H ABG O2 Saturation Not Reportable ABG Base Excess -0.5 FiO2 Not Reportable Blood Type O POSITIVE Antibody Screen NEGATIVE 10/01/17 07:16 WBC 12.7 H RBC 3.34 L Hgb 9.7 L Hct 28.9 L MCV 87 MCH 29.2 MCHC 33.8 RDW 13.4 Plt Count 242 Seg Neutrophils % Lymphocytes % Monocytes % Eosinophils % Basophils % Absolute Neutrophils Absolute Lymphocytes Absolute Monocytes Absolute Eosinophils Absolute Basophils Carbonic Acid HCO3/H2CO3 Ratio ABG pH ABG pCO2 ABG pO2 ABG HCO3 ABG O2 Saturation ABG Base Excess FiO2 Blood Type Antibody Screen Assessment and Plan(PN) - Assessment and Plan (1) Normal vaginal delivery Is this a current diagnosis for this admission?: Yes (2) Second degree perineal laceration during delivery, delivered Is this a current diagnosis for this admission?: Yes - Time Spent with Patient Time with patient: Less than 15 minutes Medications reviewed and adjusted accordingly: Yes - Disposition Anticipated Discharge: Home Within: within 24 hours, within 48 hours
[2017-10-01] MEDS ORDERED: (PENDING PHARMACY ID) (Prenatal Vit,Calc76/Iron/Folic [Prenatabs Rx Tablet] 1 EACH) PO SCH (10:00)
[2017-10-02] MEDS: IBUPROFEN 800 MG TABLET PO SCH ×2 (06:35→13:38)
--- NOTE | 2017-10-02 08:50 | PDOC DISCHARGE SUMMARY ---
Final Diagnosis Discharge Date: 10/02/17 - Final Diagnosis (1) Normal vaginal delivery Is this a current diagnosis for this admission?: Yes (2) Anemia during in third trimester Is this a current diagnosis for this admission?: Yes (3) GBS (group B Streptococcus carrier), +RV culture, currently Is this a current diagnosis for this admission?: Yes (4) Acute blood loss anemia Is this a current diagnosis for this admission?: Yes Discharge Data - Discharge Medication Prescriptions: Ibuprofen [Motrin 800 mg Tablet] 800 mg PO Q8HP PRN #30 tablet PRN Reason: Abdominal Cramping Docusate Sodium [Colace 100 mg Capsule] 100 mg PO BID #60 capsule Ferrous Sulfate [Feosol 325 mg Tablet] 325 mg PO BID #60 tablet Home Medications: Vit,Calc76/Iron/Folic [Prenatabs Rx Tablet] 1 each PO DAILY 08/31/17 Docusate Sodium [Colace 100 mg Capsule] 100 mg PO BID #60 capsule 10/02/17 Ferrous Sulfate [Feosol 325 mg Tablet] 325 mg PO BID #60 tablet 10/02/17 Ibuprofen [Motrin 800 mg Tablet] 800 mg PO Q8HP PRN #30 tablet 10/02/17 Reason(s) for Admission: Onset of Labor Procedures: Ultrasound Intrapartum Procedure(s): Spontaneous Vaginal Delivery - Diagnosis Test Laboratory: Temp Pulse Resp BP Pulse Ox 98.0 F 59 L 16 116/67 99 10/02/17 04:00 10/02/17 04:00 10/02/17 04:00 10/02/17 04:00 10/02/17 04:00 09/30/17 10/01/17 10/01/17 23:00 01:30 07:16 RBC 3.73 3.34 L Hgb 10.9 L 9.7 L Hct 32.4 L 28.9 L Urine Opiates Screen NEGATIVE - Discharge information/Instructions Discharge Activity: Activity As Tolerated, Balance Activity w/Rest, No Lifting Over 10 Pounds, Pelvic Rest, No tub bath, Walk Frequently Discharge Diet: Regular Disposition: HOME, SELF-CARE Follow up with: [facility] in: 4, Weeks
[2017-10-02] MEDS: FERROUS SULFATE 325 MG TABLET PO SCH ×2 (09:35→17:36)
[2017-10-02] MEDS: FAMOTIDINE 20 MG TABLET PO SCH (09:35)
[2017-10-02] MEDS: DOCUSATE SODIUM 100 MG CAPSULE PO SCH ×2 (09:36→17:36)
[2017-10-02] MEDS: SENNOSIDES/DOCUSATE 8.6-50 MG 1 EACH TABLET PO SCH (09:36)
[2017-10-02] MEDS: PRENATAL VITAMIN W DHA CAPSULE PO SCH (09:36)
[2017-10-02 18:22] VITALS: BP 135/71
== END 2017-10-02 21:45 | disposition home or self-care (01) | DRG 775 ==
LOC: LC 22:29 → LR 22:52 → 2S 10-01 01:55
PROVIDERS: ADMIT Obstetrics & Gynecology; ATTEND Obstetrics & Gynecology
PROC: 10E0XZZ Delivery of Products of Conception, External Approach (ICD-10-PCS; principal; 2017-09-30)
PROC: 0KQM0ZZ Repair Perineum Muscle, Open Approach (ICD-10-PCS; 2017-09-30)
PROC: 4A1HXCZ Monitoring of Products of Conception, Cardiac Rate, External Approach (ICD-10-PCS; 2017-09-30)
DX: O69.81X0 Labor and delivery complicated by cord around neck, without compression, not applicable or unspecified (principal); D62 Acute posthemorrhagic anemia; O99.824 Streptococcus B carrier state complicating childbirth; O76 Abnormality in fetal heart rate and rhythm complicating labor and delivery; O13.4 Gestational [pregnancy-induced] hypertension without significant proteinuria, complicating childbirth; O70.1 Second degree perineal laceration during delivery; O62.3 Precipitate labor; O99.02 Anemia complicating childbirth; Z37.0 Single live birth; Z3A.37 37 weeks gestation of pregnancy; Z87.891 Personal history of nicotine dependence; Z87.59 Personal history of other complications of pregnancy, childbirth and the puerperium
CPT/HCPCS: 36415; 80307; 82803; 85025; 85027; 86592; 86850; 86900; 86901; J2540; J2550; J2590; J3490

== ENCOUNTER 2018-07-31 10:56 | Emergency (ER) | payer SELFPAY ==
[2018-07-31 11:11] VITALS: BP 135/68
--- NOTE | 2018-07-31 11:33 | ER Document Report ---
HPI - HPI Patient complains to provider of: Right eye drainage Time Seen by Provider: 07/31/18 11:19 Onset: Yesterday Onset/Duration: Persistent Quality of pain: Achy Pain Level: 4 Context: Patient presents complaining of right eye swelling and drainage with matting of her lashes. Patient states she does wear contact lenses occasionally but has not worn any for about a week. Patient has been wearing glasses. Patient denies any trauma to the eye. Associated Symptoms: denies: Fever Exacerbated by: Denies Relieved by: Denies Similar symptoms previously: No Recently seen / treated by doctor: No - ROS ROS below otherwise negative: Yes Systems Reviewed and Negative: Yes All other systems reviewed and negative - EENT EENT: REPORTS: Eye problems - RESPIRATORY Respiratory: DENIES: Coughing - GASTROINTESTINAL Gastrointestinal: DENIES: Nausea, Patient vomiting - REPRODUCTIVE Reproductive: DENIES: : - DERM Skin Color: Normal Skin Problems: None Past Medical History - General Information source: Patient - Social History Smoking Status: Current Every Day Smoker Smoking Education Provided: Yes Frequency of alcohol use: None Drug Abuse: None 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 IN LAST 30 DAYS: No - HEENT HEENT: Atraumatic, Normocephalic Notes: No corneal abrasion, ulcer, foreign body or dendrite. No fluorescein uptake. No pain with movement of eyes. No periorbital swelling, no proptosis. - NECK Neck: Normal Inspection - RESPIRATORY Respiratory: Breath Sounds Normal, No Respiratory Distress - CARDIOVASCULAR Cardiovascular: Regular Rate, Regular Rhythm - MUSCULOSKELETAL/EXTREMETIES Musculoskeletal/Extremeties: MAEW - NEURO Level of Consciousness: Awake, Alert, Appropriate Motor/Sensory: No Motor Deficit - DERM Integumentary: Warm, Dry, No Rash Course - Vital Signs Vital signs: Temp Pulse Resp BP Pulse Ox 98.6 F 88 18 135/68 H 96 07/31/18 11:09 07/31/18 11:07/31/18 11:07/31/18 11:07/31/18 11:09 Discharge - Discharge Clinical Impression: Conjunctivitis Qualifiers: Conjunctivitis type: acute Acute conjunctivitis type: unspecified Laterality: right Qualified Code(s): H10.31 - Unspecified acute conjunctivitis, right eye Condition: Stable Disposition: HOME, SELF-CARE Instructions: Conjunctivitis ([facility]), Eyedrop Use ([facility]) Additional Instructions: Return immediately for any new or worsening symptoms Followup with your primary care provider, call tomorrow to make a followup appointment Follow-up with your lab head for recheck, call today for an appointment Do not wear your contact lenses until symptoms have all completely resolved Prescriptions: Polymyxin B Sulfate/Tmp [Polytrim Oph Soln 10 ml] 1 drop RT_EYE ASDIR #1 bottle Forms: Smoking Cessation Education, Return to Work Referrals: HERMINIO SON MD [[facility]] - Follow up as needed
== END 2018-07-31 11:55 | disposition home or self-care (01) ==
LOC: ER 10:56
DX: H10.31 Unspecified acute conjunctivitis, right eye (principal); F17.200 Nicotine dependence, unspecified, uncomplicated
CPT/HCPCS: 99282

== ENCOUNTER 2018-11-20 01:49 | Emergency (ER) | payer SELFPAY ==
--- NOTE | 2018-11-20 04:21 | ER Document Report ---
ED GI/ - General Chief Complaint: Abdominal Pain Stated Complaint: ABDOMINAL PAIN Time Seen by Provider: 11/20/18 04:19 Mode of Arrival: Ambulatory Information source: Patient Notes: HISTORY OF PRESENT ILLNESS: Patient is a 28-year-old female with no significant past medical history who pre sents with epigastric and right upper quadrant abdominal pain. Patient reports that she is been having pain off and on "for some time," but recently has been getting worse after eating greasy foods. Patient reports that she was at work earlier and ate some greasy, precipitating worsening the pain. She reports nausea but no vomiting. Location: Epigastric, right upper quadrant Onset: Gradual Alleviation: None Provocation: [place] foods Quality: Burning, aching Radiation: "Sometimes it goes to my back or my sides" Severity: Severe at worst, currently mild to moderate Timing: Episodic, intermittent History of abdominal surgery: None Associated symptoms: Nausea but no vomiting, no fevers or chills, no constipation or diarrhea, no vaginal bleeding or discharge Last bowel movement: Today and normal Last menstrual period: Last month REVIEW OF SYSTEMS: CONSTITUTIONAL : Denies fever or chills, no sweats. Denies recent illness. EENT: Denies eye, ear, throat, or mouth pain or symptoms. Denies nasal or sinus congestion. CARDIOVASCULAR: Denies chest pain. Denies swelling of the legs. RESPIRATORY: Denies cough, cold, or chest congestion. Denies shortness of breath or difficulty breathing. Denies wheezing. GASTROINTESTINAL: Positive for abdominal pain. Positive for nausea but no v omiting or diarrhea. Denies constipation. GENITOURINARY: Denies difficulty urinating, painful urination, burning, frequency, or blood in urine. FEMALE GENITOURINARY: Denies vaginal bleeding, abnormal or irregular periods. MUSCULOSKELETAL: Denies neck or back pain or joint pain or swelling. SKIN: Denies rash or skin lesions. HEMATOLOGIC : Denies easy bruising or bleeding. LYMPHATIC: Denies swollen, enlarged glands. NEUROLOGICAL: Denies altered mental status or loss of consciousness. Denies headache. Denies weakness or paralysis or loss of use of either side. Denies problems with gait or speech. Denies sensory or motor loss. PSYCHIATRIC: Denies anxiety or stress or depression. All other systems reviewed and negative. PHYSICAL EXAMINATION: GENERAL: Well-appearing, well-nourished and in no acute distress. HEAD: Atraumatic, normocephalic. No scalp deformity, depression, or crepitance. EYES: Pupils are 3 mm and equal/round/reactive to light, extraocular movements intact, sclera anicteric, conjunctiva are normal. ENT: Nares patent bilaterally, oropharynx. Moist mucous membranes. No tonsil hypertrophy. NECK: Normal range of motion, supple without lymphadenopathy. LUNGS: Breath sounds present, equal, and clear to auscultation bilaterally. No wheezes, rales, or rhonchi. HEART: Regular rate and rhythm without murmurs, rubs, or gallops. 2+ peripheral pulses. Normal capillary refill. ABDOMEN: Soft and nondistended, mild to moderate epigastric and right upper quadrant tenderness, no rigidity. Normoactive bowel sounds. No guarding, no rebound. No masses appreciated. BACK: Normal contour, no midline tenderness. Rectal exam deferred. GENITAL/PELVIC: Deferred. EXTREMITIES: Normal range of motion, no pitting or edema. No cyanosis. NEUROLOGICAL: No focal neurological deficits. Moves all extremities spontaneously and on command. PSYCH: Normal mood, normal affect. No suicidal thoughts/ideations. No homicidal thoughts/ideations. No hallucinations. SKIN: Warm, dry, normal turgor, no rashes or lesions noted. ASSESSMENT AND PLAN: This patient is a 28-year-old female who presents with abdominal pain that could be peptic ulcer disease versus gastritis versus pancreatitis versus cholelithiasis versus cholecystitis. 1. Will obtain labs, urine, and right upper quadrant ultrasound. 2. Will give IV fluids with morphine and Zofran. TRAVEL OUTSIDE OF THE [place] IN LAST 30 DAYS: No - HPI Patient complains to provider of: Abdominal pain Onset: This evening Timing/Duration: Gradual Quality of pain: Burning, Cramping Severity at maximum: Severe Severity in ED: Moderate Pain Level: 3 Context: Other - "Normally happens after eating greasy foods" Location: Epigastric, RUQ Vaginal bleeding (Compared to normal period): None Sexual history: Active Associated symptoms: Nausea. denies: Blood in emesis, Blood in stool, Vomiting Exacerbated by: Denies Relieved by: Denies Similar symptoms previously: No Recently seen / treated by doctor: No - Related Data Allergies/Adverse Reactions: No Known Allergies Allergy (Verified 11/20/18 01:50) Past Medical History - General Information source: Patient - Social History Smoking Status: Never Smoker Chew tobacco use (# tins/day): No Frequency of alcohol use: None Drug Abuse: None Lives with: Family Family History: Hypertension Patient has suicidal ideation: No Patient has homicidal ideation: No - Medical History Medical History: Negative - Past Medical History Cardiac Medical History: Reports: None Pulmonary Medical History: Reports: None EENT Medical History: Reports: None Neurological Medical History: Reports: None Endocrine Medical History: Reports: None Renal/ Medical History: Reports: None. Denies: Hx Peritoneal Dialysis Malignancy Medical History: Reports: None GI Medical History: Reports: None Musculoskeletal Medical History: Reports Hx Musculoskeletal Deformity, Reports Hx Musculoskeletal Trauma Skin Medical History: Reports None Psychiatric Medical History: Reports: None Traumatic Medical History: Reports: None Infectious Medical History: Reports: None Past Surgical History: Reports: Hx Orthopedic Surgery - L knee - Immunizations Hx Diphtheria, Pertussis, Tetanus Vaccination: No Review of Systems - Review of Systems Constitutional: No symptoms reported EENT: No symptoms reported Cardiovascular: No symptoms reported Respiratory: No symptoms reported Gastrointestinal: See HPI, Abdominal pain, Nausea Genitourinary: No symptoms reported Female Genitourinary: No symptoms reported Musculoskeletal: No symptoms reported Skin: No symptoms reported Hematologic/Lymphatic: No symptoms reported Neurological/Psychological: No symptoms reported -: Yes All other systems reviewed and negative Physical Exam - Vital signs Vitals: Temp Pulse Resp BP Pulse Ox 98.5 F 82 16 148/83 H 98 11/20/18 02:01 11/20/18 02:01 11/20/18 02:01 11/20/18 02:01 11/20/18 02:01 Interpretation: Normal Course - Re-evaluation Re-evalutation: 11/20/18 06:29 Labs, including lipase and liver function test, are normal. White blood cell count is also normal. Ultrasound shows multiple stones in the gallbladder with mild thickening but no pericholecystic fluid or evidence of biliary obstruction. There is no evidence of acute cholecystitis. Will discharge the patient home with strict return precautions and follow-up with surgery. All results were explained to and discussed with the patient, and all questions addressed and answered for the patient. The patient voice both understanding and agreeing with the plan. - Vital Signs Vital signs: Temp Pulse Resp BP Pulse Ox 98.0 F 68 16 145/82 H 100 11/20/18 05:32 11/20/18 05:32 11/20/18 05:32 11/20/18 05:32 11/20/18 05:32 - Laboratory Result Diagrams: 11/20/18 04:22 11/20/18 04:22 Laboratory results interpreted by me: 11/20/18 04:22 Urine Protein 30 H Urine Bilirubin MODERATE H Urine Urobilinogen 2.0 H Ur Leukocyte Esterase TRACE H Urine Ascorbic Acid 20 H - Diagnostic Test Radiology reviewed: Image reviewed, Reports reviewed Discharge - Discharge Clinical Impression: Cholelithiasis Qualifiers: Cholelithiasis location: gallbladder Cholecystitis presence: without cholecystitis Biliary obstruction: without biliary obstruction Qualified Code(s): K80.20 - Calculus of gallbladder without cholecystitis without obstruction Condition: Good Disposition: HOME, SELF-CARE Instructions: Gallbladder Disease ([facility]) Additional Instructions: You have been evaluated in the Emergency Department for abdominal pain related to gallstones. While here, you had blood work that was normal and it is now safe to be discharged home. Please follow-up with your surgery as soon as possible to discuss having your gallbladder removed. Return to the Emergency Department if you experience worsening pain, uncontrollable vomiting, high fevers, or any other concerning symptoms. Prescriptions: Hydrocodone/Acetaminophen [[place] 5-325 mg Tablet] 1 tab PO Q6HP PRN #20 tablet PRN Reason: For Pain Ondansetron [Zofran Odt 4 mg Tablet] 1 tab PO Q8HP PRN #30 tab.rapdis PRN Reason: For Nausea/Vomiting Referrals: JEANNA MUNROE MD [ACTIVE STAFF] - Follow up as needed Print Language: Pashto
[2018-11-20 05:07] LABS: ABSOLUTE BASOPHILS # (AUTO) 0.1 10^3/uL (0.0-0.2); ABSOLUTE EOSINOPHILS # (AUTO) 0.2 10^3/uL (0.0-0.6); ABSOLUTE LYMPHOCYTES (AUTO) 3.7 10^3/uL (0.5-4.7); ABSOLUTE MONOCYTES (AUTO) 0.5 10^3/uL (0.1-1.4); ABSOLUTE NEUT (AUTO) 5.9 10^3/uL (1.7-8.2); BASOPHILS % (AUTO) 0.6 % (0-2); EOSINOPHILS % (AUTO) 1.6 % (0-6); HEMATOCRIT 36.2 % (36.0-47.0); LYMPHOCYTES % (AUTO) 35.9 % (13-45); MEAN CORPUSCULAR HEMOGLOBIN 28.8 pg (27.0-33.4); MEAN CORPUSCULAR HGB CONC 33.2 g/dL (32.0-36.0); MEAN CORPUSCULAR VOLUME 87 fl (80-97); MONOCYTES % (AUTO) 5.2 % (3-13); PLATELET COUNT 253 10^3/uL (150-450); RED BLOOD COUNT 4.18 10^6/uL (3.72-5.28); RED CELL DISTRIBUTION WIDTH 13.3 % (11.5-14.0); SEGMENTED NEUTROPHILS % (AUTO) 56.7 % (42-78); TOTAL CELLS COUNTED % (AUTO) 100 %; WHITE BLOOD COUNT 10.4 10^3/uL (4.0-10.5)
[2018-11-20 05:19] LABS: URINE SPECIFIC GRAVITY 1.036
[2018-11-20 05:20] LABS: APPEARANCE,URINE CLEAR; BILIRUBIN,URINE MODERATE (NEGATIVE); COLOR,URINE AMBER; GLUCOSE, URINE NEGATIVE (NEGATIVE); KETONES,URINE NEGATIVE (NEGATIVE); LEUKOCYTE ESTERASE,URINE TRACE (NEGATIVE); NITRITE,URINE NEGATIVE (NEGATIVE); PROTEIN,URINE 30 mg/dL (NEGATIVE)
[2018-11-20 05:27] LABS: ALBUMIN 4.2 g/dL (3.5-5.0); ALKALINE PHOSPHATASE 89 U/L (38-126); ANION GAP 10 (5-19); ASPARTATE AMINO TRANSFERASE 14 U/L (14-36); BILIRUBIN,DIRECT 0.1 mg/dL (0.0-0.4); BILIRUBIN,TOTAL 0.4 mg/dL (0.2-1.3); BLOOD UREA NITROGEN 10 mg/dL (7-20); CALCIUM 9.6 mg/dL (8.4-10.2); CARBON DIOXIDE 26 mmol/L (22-30); CHLORIDE 104 mmol/L (98-107); GLUCOSE 96 mg/dL (75-110); POTASSIUM 4.1 mmol/L (3.6-5.0); TOTAL PROTEIN 7.5 g/dL (6.3-8.2)
[2018-11-20] MEDS ORDERED: NORMAL SALINE 1000 ML 1,000 ML IV ONE (05:29)
[2018-11-20] MEDS ORDERED: ONDANSETRON HCL INJ/PF 4 MG/2 ML SDV IV ONE (05:30)
[2018-11-20] MEDS ORDERED: MORPHINE SULFATE 10 MG/ML INJ IV ONE (05:30)
--- NOTE | 2018-11-20 05:59 | RADIOLOGY REPORT (SQ) ---
EXAM: Ultrasound abdomen limited CLINICAL DATA: 28-year-old female with abdominal pain. TECHNICAL DATA: Limited sonographic imaging of the right upper quadrant was performed on 11/20/2018 at 5:16 AM. Comparison: None. FINDINGS: The liver is normal in size and configuration. The liver measures approximately 15 cm in greatest sagittal dimension. The liver demonstrates increased echogenicity which is commonly seen with fatty infiltration. No focal hepatic abnormalities are identified. Doppler imaging reveals patency of the portal vein and normal hepatopedal flow. The gallbladder is well distended and contains multiple shadowing intraluminal echoes consistent with gallstones. The gallbladder wall thickness measures approximately 4 mm. This measurement may be slightly overestimated. A positive sonographic Ochoa sign was detected by the technologist. No definite pericholecystic fluid is seen. There is no evidence of biliary ductal dilatation. The common bile duct measures 2.3 mm in diameter. The right kidney is normal in size, shape and echogenicity without hydronephrosis or definite nephrolithiasis. The right kidney measures 10.1 cm in length. There is no evidence of free fluid in the abdomen. There is limited visualization of the pancreas secondary to bowel gas and patient body habitus. The aorta is normal in caliber and contour as is the inferior vena cava. IMPRESSION: 1. Cholelithiasis with questionable gallbladder wall thickening and positive sonographic Ochoa sign. There is no evidence of biliary ductal dilatation. 2. Otherwise, unremarkable right upper quadrant abdominal ultrasound.
[2018-11-20] MEDS ORDERED: METOCLOPRAMIDE HCL INJ/PF 10 MG/2 ML SDV IV ONE (06:16)
[2018-11-20 08:13] VITALS: BP 136/75
== END 2018-11-20 08:43 | disposition home or self-care (01) ==
LOC: ER 01:49
DX: K80.20 Calculus of gallbladder without cholecystitis without obstruction (principal); R10.11 Right upper quadrant pain; R10.13 Epigastric pain; R10.816 Epigastric abdominal tenderness; R10.811 Right upper quadrant abdominal tenderness; R11.0 Nausea
CPT/HCPCS: 99284; 96361; 96374; 96375; 36415; 83690; 85025; 81025; 80053; 81001; 76705; J2765; J2270; J2405; J7030

== ENCOUNTER 2018-11-20 19:22 | Observation (INO) | payer SELFPAY ==
[2018-11-20] MEDS ORDERED: PROMETHAZINE HCL 25 MG SUPP.RECT PR ONE (19:38)
--- NOTE | 2018-11-20 19:39 | ER Document Report ---
ED Medical Screen (RME) - General Chief Complaint: Abdominal Pain Stated Complaint: ABDOMINAL PAIN Time Seen by Provider: 11/20/18 19:35 Mode of Arrival: Ambulatory Information source: Patient Notes: This 28-year-old female presents the emergency department with right upper quad epigastric pain. She reports pain since Monday with vomiting. She was evaluated for gallbladder disease in the emergency department today told to follow-up with surgery but has not been able to follow-up with them. She reports she has been vomiting all day today. She reports the medications prescribed have not helped her. She reports she is had abdominal pain for over a month. I have greeted and performed a rapid initial assessment of this patient. A comprehensive ED assessment and evaluation of the patient, analysis of test results and completion of the medical decision making process will be conducted by additional ED providers. Dictation of this chart was performed using voice recognition software; therefore, there may be some unintended grammatical errors. TRAVEL OUTSIDE OF THE [place] IN LAST 30 DAYS: No - Related Data Allergies/Adverse Reactions: No Known Allergies Allergy (Verified 11/20/18 19:24) Past Medical History - Social History Chew tobacco use (# tins/day): No Frequency of alcohol use: None Drug Abuse: None Renal/ Medical History: Denies: Hx Peritoneal Dialysis Musculoskeltal Medical History: Reports Hx Musculoskeletal Deformity, Reports Hx Musculoskeletal Trauma Past Surgical History: Reports: Hx Orthopedic Surgery - L knee - Immunizations Hx Diphtheria, Pertussis, Tetanus Vaccination: No Physical Exam - Vital signs Vitals: Temp Pulse Resp BP Pulse Ox 97.9 F 63 18 163/96 H 99 11/20/18 19:27 11/20/18 19:27 11/20/18 19:27 11/20/18 19:27 11/20/18 19:27 Course - Vital Signs Vital signs: Temp Pulse Resp BP Pulse Ox 97.9 F 63 18 163/96 H 99 11/20/18 19:27 11/20/18 19:27 11/20/18 19:27 11/20/18 19:27 11/20/18 19:27
[2018-11-20 20:20] LABS: ABSOLUTE BASOPHILS # (AUTO) 0.1 10^3/uL (0.0-0.2); ABSOLUTE LYMPHOCYTES (AUTO) 1.6 10^3/uL (0.5-4.7); ABSOLUTE MONOCYTES (AUTO) 0.4 10^3/uL (0.1-1.4); ABSOLUTE NEUT (AUTO) 10.2 10^3/uL (1.7-8.2); BASOPHILS % (AUTO) 0.5 % (0-2); EOSINOPHILS % (AUTO) 0.2 % (0-6); HEMOGLOBIN 11.3 g/dL (12.0-15.5); LYMPHOCYTES % (AUTO) 13.4 % (13-45); MEAN CORPUSCULAR HEMOGLOBIN 28.7 pg (27.0-33.4); MEAN CORPUSCULAR HGB CONC 33.3 g/dL (32.0-36.0); MEAN CORPUSCULAR VOLUME 86 fl (80-97); MONOCYTES % (AUTO) 3.3 % (3-13); PLATELET COUNT 261 10^3/uL (150-450); RED BLOOD COUNT 3.95 10^6/uL (3.72-5.28); RED CELL DISTRIBUTION WIDTH 13.5 % (11.5-14.0); SEGMENTED NEUTROPHILS % (AUTO) 82.6 % (42-78); TOTAL CELLS COUNTED % (AUTO) 100 %; WHITE BLOOD COUNT 12.4 10^3/uL (4.0-10.5)
[2018-11-20 20:26] LABS: APPEARANCE,URINE SLIGHTLY-CLOUDY; BILIRUBIN,URINE NEGATIVE (NEGATIVE); COLOR,URINE AMBER; GLUCOSE, URINE NEGATIVE (NEGATIVE); KETONES,URINE 20 mg/dL (NEGATIVE); LEUKOCYTE ESTERASE,URINE MODERATE (NEGATIVE); NITRITE,URINE NEGATIVE (NEGATIVE); PROTEIN,URINE 30 mg/dL (NEGATIVE); URINE SPECIFIC GRAVITY 1.027
[2018-11-20 20:52] LABS: ALBUMIN 4.1 g/dL (3.5-5.0); ALKALINE PHOSPHATASE 87 U/L (38-126); ANION GAP 11 (5-19); ASPARTATE AMINO TRANSFERASE 16 U/L (14-36); BILIRUBIN,DIRECT 0.2 mg/dL (0.0-0.4); BILIRUBIN,TOTAL 0.7 mg/dL (0.2-1.3); BLOOD UREA NITROGEN 7 mg/dL (7-20); CALCIUM 9.3 mg/dL (8.4-10.2); CARBON DIOXIDE 24 mmol/L (22-30); CHLORIDE 103 mmol/L (98-107); GLUCOSE 115 mg/dL (75-110); TOTAL PROTEIN 7.3 g/dL (6.3-8.2)
--- NOTE | 2018-11-20 21:42 | RADIOLOGY REPORT (SQ) ---
EXAM DESCRIPTION: CT ABDOMEN PELVIS WITH IV CONTRAST COMPLETED DATE/TME: 11/20/2018 19:38 CLINICAL HISTORY: 28 years, Female, abd pain vomiting This exam was performed according to our departmental dose-optimization program which includes automated exposure control, adjustment of the mA and/or kVp according to patient size and/or use of iterative reconstruction technique where applicable. Compared to right upper quadrant ultrasound dated 11/20/2018. FINDINGS: Visualized lung bases are within normal limits. Liver, spleen, pancreas, adrenal glands and kidneys are within normal limits. No hydronephrosis or biliary dilatation. Gallbladder demonstrates moderate wall thickening and mild pericholecystic edema. It is mildly distended. Findings correlate with ultrasound. No dilated loops of bowel to suggest obstruction. Mild amount of stool in the colon. Appendix is normal. No free fluid or free air. The bladder is unremarkable. Gynecologic organs demonstrate a simple right adnexal cyst measuring 3.5 cm. No free fluid or free air. No abdominal or pelvic lymphadenopathy. Abdominal aorta is within normal limits. IMPRESSION: Gallbladder wall thickening/pericholecystic edema. This correlates with six sonographic findings and may be due to acute cholecystitis. No biliary dilatation. No evidence for acute appendicitis. No ascites.
[2018-11-20] MEDS ORDERED: MORPHINE SULFATE 10 MG/ML INJ IV ONE (22:21)
--- NOTE | 2018-11-20 22:21 | ER Document Report ---
ED General - General Chief Complaint: Abdominal Pain Stated Complaint: ABDOMINAL PAIN Time Seen by Provider: 11/20/18 19:35 Mode of Arrival: Ambulatory TRAVEL OUTSIDE OF THE [place] IN LAST 30 DAYS: No - HPI Notes: Patient represents the emergency department with right upper quadrant pain and inability to hold down foods and vomiting. She was diagnosed with gallstones. She is provided outpatient surgery referral but due to her not able to eat and worsening pain despite pain medications return to the emergency department. No known medical problems. Does not take any medications on a daily basis - Related Data Allergies/Adverse Reactions: No Known Allergies Allergy (Verified 11/20/18 19:24) Past Medical History - General Information source: Patient - Social History Smoking Status: Current Every Day Smoker Chew tobacco use (# tins/day): No Frequency of alcohol use: None Drug Abuse: None Family History: Hypertension Patient has suicidal ideation: No Patient has homicidal ideation: No Renal/ Medical History: Denies: Hx Peritoneal Dialysis Musculoskeletal Medical History: Reports Hx Musculoskeletal Deformity, Reports Hx Musculoskeletal Trauma Past Surgical History: Reports: Hx Orthopedic Surgery - L knee - Immunizations Hx Diphtheria, Pertussis, Tetanus Vaccination: No Review of Systems - Review of Systems Constitutional: No symptoms reported EENT: No symptoms reported Cardiovascular: No symptoms reported Respiratory: No symptoms reported Gastrointestinal: See HPI Genitourinary: No symptoms reported Female Genitourinary: No symptoms reported Musculoskeletal: No symptoms reported Skin: No symptoms reported Hematologic/Lymphatic: No symptoms reported Neurological/Psychological: No symptoms reported Physical Exam - Vital signs Vitals: Temp Pulse Resp BP Pulse Ox 97.9 F 63 18 163/96 H 99 11/20/18 19:27 11/20/18 19:27 11/20/18 19:27 11/20/18 19:27 11/20/18 19:27 - General General appearance: Appears well, Alert - HEENT Head: Normocephalic, Atraumatic - Respiratory Respiratory status: No respiratory distress Chest status: Nontender Breath sounds: Normal - Cardiovascular Rhythm: Regular Heart sounds: Normal auscultation Murmur: No - Abdominal Inspection: Normal Distension: No distension Bowel sounds: Normal Tenderness: Ochoa's sign - Extremities General upper extremity: Normal inspection, Normal ROM General lower extremity: Normal inspection, Normal ROM - Neurological Neuro grossly intact: Yes Cognition: Normal Orientation: AAOx4 Course - Re-evaluation Re-evalutation: 11/20/18 22:20 CT performed by triage shows pericholecystic fluid with signs concerning cholecystitis. Patient will be admitted under Dr. Dai - Vital Signs Vital signs: Temp Pulse Resp BP Pulse Ox 97.9 F 63 18 163/96 H 99 11/20/18 19:27 11/20/18 19:27 11/20/18 19:27 11/20/18 19:27 11/20/18 19:27 - Laboratory Result Diagrams: 11/20/18 20:00 11/20/18 20:00 Laboratory results interpreted by me: 11/20/18 11/20/18 11/20/18 19:45 20:00 20:00 WBC 12.4 H Hgb 11.3 L Hct 34.0 L Absolute Neuts (auto) 10.2 H Seg Neutrophils % 82.6 H Glucose 115 H Urine Protein 30 H Urine Ketones 20 H Urine Urobilinogen 2.0 H Ur Leukocyte Esterase MODERATE H Discharge - Discharge Clinical Impression: Cholecystitis Condition: Good Disposition: ADMITTED INPATIENT Admitting Provider: Suhas Unit Admitted: Medical Floor
[2018-11-20] MEDS ORDERED: DEXTROSE 40% GEL 15 GM TUBE PO PRN ×2 (23:10)
[2018-11-20] MEDS ORDERED: GLUCAGON,HUMAN RECOMB 1 MG INJ SUBCUT PRN (23:10)
[2018-11-20] MEDS ORDERED: POTASSI CL 20 MEQ/1/2NS 1L 20 MEQ/1,000 ML RTUINJ IV PRN (23:10)
[2018-11-20] MEDS ORDERED: DEXTROSE 50%-WATER 25 GM/50 ML DISP.SYRIN IV PRN ×2 (23:10)
[2018-11-20] MEDS ORDERED: MORPHINE SULFATE 10 MG/ML INJ IV PRN (23:10)
--- NOTE | 2018-11-20 23:21 | PDOC H&P ---
History of Present Illness Admission Date/PCP: 11/20/18 22:26 History of Present Illness: CAROLYNE FREEDMAN is a 28 year old femalePatient presents the emergency department with right upper quadrant pain and inability to hold down foods and vomiting. She was diagnosed with gallstones this am.was discharged home from er this am. She is provided outpatient surgery referral but due to her not able to eat and worsening pain despite pain medications return to the emergency department. No known medical problems. Does not take any medications on a daily basis Past Surgical History Past Surgical History: Reports: Orthopedic Surgery - L knee Social History Smoking Status: Current Every Day Smoker Family History Family History: Hypertension Parental Family History Reviewed: No Children Family History Reviewed: NA Sibling(s) Family History Reviewed.: NA Medication/Allergy Home Medications: Vit,Calc76/Iron/Folic [Prenatabs Rx Tablet] 1 each PO DAILY 08/31/17 Docusate Sodium [Colace 100 mg Capsule] 100 mg PO BID #60 capsule 10/02/17 Ferrous Sulfate [Feosol 325 mg Tablet] 325 mg PO BID #60 tablet 10/02/17 Ibuprofen [Motrin 800 mg Tablet] 800 mg PO Q8HP PRN #30 tablet 10/02/17 Polymyxin B Sulfate/Tmp [Polytrim Oph Soln 10 ml] 1 drop RT_EYE ASDIR #1 bottle 07/31/18 Hydrocodone/Acetaminophen [[place] 5-325 mg Tablet] 1 tab PO Q6HP PRN #20 tablet 11/20/18 Ondansetron [Zofran Odt 4 mg Tablet] 1 tab PO Q8HP PRN #30 tab.rapdis 11/20/18 Allergies/Adverse Reactions: No Known Allergies Allergy (Verified 11/20/18 19:24) Review of Systems Constitutional: ABSENT: as per HPI, anorexia, chills, fatigue, fever(s), headache(s), night sweats, weakness, weight gain, weight loss, other Eyes: ABSENT: as per HPI, visual disturbances, other Ears: ABSENT: as per HPI, hearing changes, other Breasts: ABSENT: as per HPI, other Cardiovascular: ABSENT: as per HPI, chest pain, dyspnea on exertion, edema, orthropnea, palpitations, other Respiratory: ABSENT: as per HPI, cough, dyspnea, hemoptysis, sputum, other Gastrointestinal: PRESENT: nausea, vomiting Genitourinary: ABSENT: as per HPI, difficulty urinating, dysuria, hematuria, nocturia, other Musculoskeletal: ABSENT: as per HPI, back pain, deformity, joint swelling, muscle weakness, other Integumentary: ABSENT: as per HPI, diaphoresis, erythema, lesions, pruritus, rash, wounds, other Neurological: ABSENT: as per HPI, abnormal gait, abnormal movements, abnormal speech, confusion, convulsions, dizziness, focal weakness, frequent falls, lack of coordination, memory loss, numbness, paresthesias, restless legs, syncope, tingling, tremor(s), vertigo, weakness, other Psychiatric: ABSENT: as per HPI, anxiety, depression, hallucinations, homidical ideation, suicidal ideation, other Endocrine: ABSENT: as per HPI, cold intolerance, flushing, heat intolerance, menstrual abnormalities, polydipsia, polyphagia, polyuria, other Hematologic/Lymphatic: ABSENT: as per HPI, easy bleeding, easy bruising, lymphadenopathy, other Allergic/Immunologic: ABSENT: as per HPI, seasonal rhinorrhea, other Physical Exam Vital Signs: Temp Pulse Resp BP Pulse Ox 97.9 F 63 18 163/96 H 99 11/20/18 19:27 11/20/18 19:27 11/20/18 19:27 11/20/18 19:27 11/20/18 19:27 Intake & Output 11/19/18 11/20/18 11/21/18 06:59 06:59 06:59 Weight 98.8 kg General appearance: PRESENT: no acute distress, obese Head exam: PRESENT: normocephalic Eye exam: PRESENT: EOMI Mouth exam: PRESENT: moist Neck exam: PRESENT: full ROM Respiratory exam: PRESENT: clear to auscultation shalini Cardiovascular exam: PRESENT: RRR Pulses: PRESENT: normal radial pulses, normal femoral pulses GI/Abdominal exam: PRESENT: Ochoa's sign, soft Rectal exam: PRESENT: deferred Extremities exam: PRESENT: full ROM Musculoskeletal exam: PRESENT: full ROM Neurological exam: PRESENT: alert, awake, oriented to person, oriented to place Psychiatric exam: PRESENT: appropriate affect Skin exam: PRESENT: dry Results Laboratory Results: 11/20/18 20:00 11/20/18 20:00 11/20/18 11/20/18 11/20/18 19:45 20:00 20:00 WBC 12.4 H RBC 3.95 Hgb 11.3 L Hct 34.0 L MCV 86 MCH 28.7 MCHC 33.3 RDW 13.5 Plt Count 261 Seg Neutrophils % 82.6 H Sodium 137.5 Potassium 4.0 Chloride 103 Carbon Dioxide 24 Anion Gap 11 BUN 7 Creatinine 0.69 Est GFR ( Amer) > 60 Glucose 115 H Calcium 9.3 Total Bilirubin 0.7 AST 16 Alkaline Phosphatase 87 Total Protein 7.3 Albumin 4.1 Lipase 27.8 Urine Color STEPHY Urine Appearance SLIGHTLY-CLOUDY Urine pH 5.0 Ur Specific Bude 1.027 Urine Protein 30 H Urine Glucose (UA) NEGATIVE Urine Ketones 20 H Urine Blood NEGATIVE Urine Nitrite NEGATIVE Ur Leukocyte Esterase MODERATE H Urine WBC (Auto) 24 Urine RBC (Auto) 3 Impressions: Abdomen/Pelvis CT 11/20/18 19:38 IMPRESSION: Gallbladder wall thickening/pericholecystic edema. This correlates with six sonographic findings and may be due to acute cholecystitis. No biliary dilatation. No evidence for acute appendicitis. No ascites. Assessment & Plan - Plan Summary Plan Summary: pt with thickened gallbladder and stones on ultz c/w cholecystitis plan admit for iv fluids, abx and sugery in am discussed risks with pt incluiding bleeding, infection retained stones, injury to adjacent organs including spleen, small bowel, duodenum, stomach, liver bile ducts and biliary vessels. need for open surgery, need for additional surgery poss related to surgery she understands and agrees to proceed.
[2018-11-20] MEDS ORDERED: FAMOTIDINE INJ/PF 20 MG/2 ML SDV IV ONE (23:45)
[2018-11-21] MEDS: METRONIDAZOLE 500 MG/NS RTU 500 MG/100 ML RTUPB IV SCH ×2 (00:29→05:02)
[2018-11-21] MEDS ORDERED: CEFTRIAXONE 2 GM/D5W RTU 0 GM/0 ML RTUPB IV ONE (02:45)
[2018-11-21] MEDS ORDERED: CEFAZOLIN INJ 1 GM VIAL ONE (03:32)
[2018-11-21] MEDS: CEFAZOLIN 2 GM/D5W RTU 2 GM/50 ML RTUPB IV SCH ×2 (04:21→12:03)
[2018-11-21] MEDS ORDERED: MIDAZOLAM 2 MG/2 ML INJ ONE (08:05)
[2018-11-21] MEDS ORDERED: FENTANYL CITRATE INJ/PF 100 MCG/2 ML AMPUL ONE (08:05)
[2018-11-21] MEDS ORDERED: PROPOFOL INJ 200 MG/20 ML VIAL IV ONE (08:05)
--- NOTE | 2018-11-21 08:17 | PDOC PROGRESS REPORT ---
Subjective Progress Note for:: 11/21/18 Subjective:: Still having some abdominal pain but less. Reason For Visit: CHOLECYSTITIS Physical Exam Vital Signs: Temp Pulse Resp BP Pulse Ox 97.9 F 59 L 16 118/51 L 98 11/21/18 08:02 11/21/18 08:02 11/21/18 08:02 11/21/18 08:02 11/21/18 08:02 Intake & Output 11/20/18 11/21/18 11/22/18 06:59 06:59 06:59 Intake Total 100 Balance 100 Weight 98.3 kg General appearance: PRESENT: no acute distress Respiratory exam: PRESENT: clear to auscultation shalini Cardiovascular exam: PRESENT: RRR GI/Abdominal exam: PRESENT: other - Soft, nondistended, very mild right upper quadrant abdominal tenderness. Extremities exam: PRESENT: other - No swelling no tenderness Results Laboratory Results: 11/20/18 20:00 11/20/18 20:00 11/20/18 11/20/18 11/20/18 19:45 20:00 20:00 WBC 12.4 H RBC 3.95 Hgb 11.3 L Hct 34.0 L MCV 86 MCH 28.7 MCHC 33.3 RDW 13.5 Plt Count 261 Seg Neutrophils % 82.6 H Sodium 137.5 Potassium 4.0 Chloride 103 Carbon Dioxide 24 Anion Gap 11 BUN 7 Creatinine 0.69 Est GFR ( Amer) > 60 Glucose 115 H Calcium 9.3 Total Bilirubin 0.7 AST 16 Alkaline Phosphatase 87 Total Protein 7.3 Albumin 4.1 Lipase 27.8 Urine Color STEPHY Urine Appearance SLIGHTLY-CLOUDY Urine pH 5.0 Ur Specific [place] 1.027 Urine Protein 30 H Urine Glucose (UA) NEGATIVE Urine Ketones 20 H Urine Blood NEGATIVE Urine Nitrite NEGATIVE Ur Leukocyte Esterase MODERATE H Urine WBC (Auto) 24 Urine RBC (Auto) 3 Impressions: Abdomen/Pelvis CT 11/20/18 19:38 IMPRESSION: Gallbladder wall thickening/pericholecystic edema. This correlates with six sonographic findings and may be due to acute cholecystitis. No biliary dilatation. No evidence for acute appendicitis. No ascites. Assessment & Plan - Diagnosis (1) Cholecystitis Is this a current diagnosis for this admission?: Yes Plan: Plan laparoscopic cholecystectomy possible open cholecystectomy. I have discussed with the patient the risk and benefits of the procedure including risk of intestinal injury and bile duct injury, bleeding, infection, heart lung complications. Patient understands and agrees to proceed.
[2018-11-21] MEDS ORDERED: BUPIVACAINE HCL 0.25 % INJ/PF (2.5 MG/1 ML) 30 ML VIAL ONE (08:28)
[2018-11-21 08:56] LABS: HEMATOCRIT 32.5 % (36.0-47.0); HEMOGLOBIN 10.8 g/dL (12.0-15.5); MEAN CORPUSCULAR HEMOGLOBIN 28.8 pg (27.0-33.4); MEAN CORPUSCULAR HGB CONC 33.3 g/dL (32.0-36.0); MEAN CORPUSCULAR VOLUME 87 fl (80-97); PLATELET COUNT 243 10^3/uL (150-450); RED BLOOD COUNT 3.75 10^6/uL (3.72-5.28); RED CELL DISTRIBUTION WIDTH 13.7 % (11.5-14.0); WHITE BLOOD COUNT 10.8 10^3/uL (4.0-10.5)
[2018-11-21] MEDS ORDERED: FAMOTIDINE INJ/PF 20 MG/2 ML SDV IV SCH (10:00)
[2018-11-21] MEDS ORDERED: NORMAL SALINE 1000 ML 1,000 ML IV PRN (10:37)
[2018-11-21] MEDS ORDERED: ONDANSETRON HCL INJ/PF 4 MG/2 ML SDV IV PRN (10:37)
--- NOTE | 2018-11-21 10:37 | Operative Report ---
Operative Report DATE OF SURGERY: 11/21/18 PREOPERATIVE DIAGNOSIS: Acute cholecystitis with cholelithiasis POSTOPERATIVE DIAGNOSIS: Same OPERATION: Laparoscopic cholecystectomy SURGEON: LYLY GIL ANESTHESIA: GA TISSUE REMOVED OR ALTERED: Gallbladder COMPLICATIONS: None ESTIMATED BLOOD LOSS: Minimal INTRAOPERATIVE FINDINGS: Distended inflamed thick-walled gallbladder with multiple gallstones PROCEDURE: Informed consent was obtained. Patient was brought to the operating room placed operating table in supine position. After satisfactory induction of general anesthesia, patient's abdomen was prepped and draped in usual sterile fashion. A infraumbilical midline incision was made and dissection carried down to the fascia the peritoneal cavity entered without difficulty. Arndt trocar was inserted. Pneumoperitoneum produced good patient toleration. 5 mm trocar was placed in the subxiphoid location.Two 5 mm trochars were placed in the right subcostal location. The bladder appeared markedly inflamed and distended and thick-walled. The gallbladder had to be decompressed with a decompression needle to allow grasping. The gallbladder was grasped and retracted cephalad over the dome of the liver. The infundibulum of the gallbladder was grasped retracted laterally and inferiorly thus exposing calot's triangle. Cystic artery over lied the cystic duct and the cystic artery was taken first by clipping and dividing. The cystic duct gallbladder junction was clearly clemente ntified and the cystic duct was clipped and divided. The gallbladder was taken off the gallbladder bed using the hook electrocautery technique. The gallbladder was removed with an Endobag through the Arndt trocar site fascial defect. The gallbladder had to be open within the bag to remove the stones to allow extraction. Hemostasis appeared excellent. The operative field was lightly irrigated and irrigant is aspirated out. All trochars were removed under the direct vision a laparoscope to ensure hemostasis. The Arndt trocar site fascial defect was closed with interrupted Vicryl sutures. All skin incisions were closed with subcuticular interrupted Monocryl sutures. Marcaine was injected at the port sites. Patient tolerated procedure well no apparent complications and was taken to the recovery area in stable condition.
[2018-11-21] MEDS ORDERED: NEOSTIGMINE METHYLSULFATE 10 MG/10 ML VIAL ONE (13:35)
[2018-11-21] MEDS ORDERED: GLYCOPYRROLATE 1 MG/5 ML VIAL ONE (13:35)
[2018-11-21] MEDS ORDERED: ROCURONIUM BROMIDE INJ 50 MG/5 ML VIAL IV ONE (13:35)
[2018-11-21] MEDS ORDERED: KETOROLAC TROMETHAMINE 60 MG/2 ML SDV ONE (13:35)
[2018-11-21] MEDS ORDERED: LIDOCAINE 2% INJ-PF (20 MG/ML) 2 ML AMPUL ONE (13:35)
[2018-11-21] MEDS ORDERED: ONDANSETRON HCL INJ/PF 4 MG/2 ML SDV ONE (13:35)
[2018-11-21] MEDS ORDERED: DEXAMETHASONE SOD PHOSPHATE INJ 4 MG/1 ML VIAL ONE (13:35)
--- NOTE | 2018-11-21 15:09 | PDOC PROGRESS REPORT ---
Subjective Progress Note for:: 11/21/18 Subjective:: Feels well. Tolerating a diet well. Wants to go home. Reason For Visit: CHOLECYSTITIS Physical Exam Vital Signs: Temp Pulse Resp BP Pulse Ox 97.9 F 57 L 16 106/54 L 99 11/21/18 14:24 11/21/18 14:24 11/21/18 14:24 11/21/18 14:24 11/21/18 14:24 Intake & Output 11/20/18 11/21/18 11/22/18 06:59 06:59 06:59 Intake Total 100 1100 Balance 100 1100 Weight 98.3 kg General appearance: PRESENT: no acute distress, cooperative Respiratory exam: PRESENT: clear to auscultation shalini Cardiovascular exam: PRESENT: RRR GI/Abdominal exam: PRESENT: other - Soft, nondistended, minimal tenderness. Results Laboratory Results: 11/21/18 08:45 11/20/18 20:00 11/20/18 11/20/18 11/20/18 19:45 20:00 20:00 WBC 12.4 H RBC 3.95 Hgb 11.3 L Hct 34.0 L MCV 86 MCH 28.7 MCHC 33.3 RDW 13.5 Plt Count 261 Seg Neutrophils % 82.6 H Sodium 137.5 Potassium 4.0 Chloride 103 Carbon Dioxide 24 Anion Gap 11 BUN 7 Creatinine 0.69 Est GFR ( Amer) > 60 Glucose 115 H Calcium 9.3 Total Bilirubin 0.7 AST 16 Alkaline Phosphatase 87 Total Protein 7.3 Albumin 4.1 Lipase 27.8 Urine Color STEPHY Urine Appearance SLIGHTLY-CLOUDY Urine pH 5.0 Ur Specific [place] 1.027 Urine Protein 30 H Urine Glucose (UA) NEGATIVE Urine Ketones 20 H Urine Blood NEGATIVE Urine Nitrite NEGATIVE Ur Leukocyte Esterase MODERATE H Urine WBC (Auto) 24 Urine RBC (Auto) 3 Blood Type Antibody Screen 11/21/18 11/21/18 08:45 08:45 WBC 10.8 H RBC 3.75 Hgb 10.8 L Hct 32.5 L MCV 87 MCH 28.8 MCHC 33.3 RDW 13.7 Plt Count 243 Seg Neutrophils % Sodium Potassium Chloride Carbon Dioxide Anion Gap BUN Creatinine Est GFR ( Amer) Glucose Calcium Total Bilirubin AST Alkaline Phosphatase Total Protein Albumin Lipase Urine Color Urine Appearance Urine pH Ur Specific [place] Urine Protein Urine Glucose (UA) Urine Ketones Urine Blood Urine Nitrite Ur Leukocyte Esterase Urine WBC (Auto) Urine RBC (Auto) Blood Type O POSITIVE Antibody Screen NEGATIVE Impressions: Abdomen/Pelvis CT 11/20/18 19:38 IMPRESSION: Gallbladder wall thickening/pericholecystic edema. This correlates with six sonographic findings and may be due to acute cholecystitis. No biliary dilatation. No evidence for acute appendicitis. No ascites. Assessment & Plan - Diagnosis (1) Cholecystitis Is this a current diagnosis for this admission?: Yes Plan: Status post laparoscopic cholecystectomy. Patient doing well. Will DC patient home.
--- NOTE | 2018-11-21 15:15 | Discharge Summary ---
General - Admit/Disc Date/PCP Admission Date/Primary Care Provider: 11/20/18 22:26 Discharge Date: 11/21/18 - Discharge Diagnosis (1) Cholecystitis Is this a current diagnosis for this admission?: Yes - Additional Information Resuscitation Status: Full Code Discharge Diet: As Tolerated - Avoid greasy foods Discharge Activity: Activity As Tolerated - Active but avoid strenuous activity. Home Medications: Norgestimate-Ethinyl Estradiol [Sprintec 28 Day Tablet] 1 each PO DAILY 11/21/18 History of Present Illness Patient complains of: Presented with abdominal pain History of Present Illness: CAROLYNE FREEDMAN is a 28 year old female presented with abdominal pain noted with gallbladder disease. Hospital Course Hospital Course: Underwent laparoscopic cholecystectomy. Did well postoperatively. Was tolerating a diet well and looked well at the time of discharge. Physical Exam Vital Signs: Temp Pulse Resp BP Pulse Ox 97.9 F 57 L 16 106/54 L 99 11/21/18 14:24 11/21/18 14:24 11/21/18 14:24 11/21/18 14:24 11/21/18 14:24 Intake & Output 11/20/18 11/21/18 11/22/18 06:59 06:59 06:59 Intake Total 100 1100 Balance 100 1100 Weight 98.3 kg General appearance: PRESENT: no acute distress, cooperative Respiratory exam: PRESENT: clear to auscultation shalini Cardiovascular exam: PRESENT: RRR GI/Abdominal exam: PRESENT: other - Minimal tenderness, nondistended, dressings are all intact. Results Laboratory Results: 11/21/18 08:45 11/20/18 20:00 11/20/18 11/20/18 11/20/18 19:45 20:00 20:00 WBC 12.4 H RBC 3.95 Hgb 11.3 L Hct 34.0 L MCV 86 MCH 28.7 MCHC 33.3 RDW 13.5 Plt Count 261 Seg Neutrophils % 82.6 H Sodium 137.5 Potassium 4.0 Chloride 103 Carbon Dioxide 24 Anion Gap 11 BUN 7 Creatinine 0.69 Est GFR ( Amer) > 60 Glucose 115 H Calcium 9.3 Total Bilirubin 0.7 AST 16 Alkaline Phosphatase 87 Total Protein 7.3 Albumin 4.1 Lipase 27.8 Urine Color STEPHY Urine Appearance SLIGHTLY-CLOUDY Urine pH 5.0 Ur Specific [place] 1.027 Urine Protein 30 H Urine Glucose (UA) NEGATIVE Urine Ketones 20 H Urine Blood NEGATIVE Urine Nitrite NEGATIVE Ur Leukocyte Esterase MODERATE H Urine WBC (Auto) 24 Urine RBC (Auto) 3 Blood Type Antibody Screen 11/21/18 11/21/18 08:45 08:45 WBC 10.8 H RBC 3.75 Hgb 10.8 L Hct 32.5 L MCV 87 MCH 28.8 MCHC 33.3 RDW 13.7 Plt Count 243 Seg Neutrophils % Sodium Potassium Chloride Carbon Dioxide Anion Gap BUN Creatinine Est GFR ( Amer) Glucose Calcium Total Bilirubin AST Alkaline Phosphatase Total Protein Albumin Lipase Urine Color Urine Appearance Urine pH Ur Specific [place] Urine Protein Urine Glucose (UA) Urine Ketones Urine Blood Urine Nitrite Ur Leukocyte Esterase Urine WBC (Auto) Urine RBC (Auto) Blood Type O POSITIVE Antibody Screen NEGATIVE Impressions: Abdomen/Pelvis CT 11/20/18 19:38 IMPRESSION: Gallbladder wall thickening/pericholecystic edema. This correlates with six sonographic findings and may be due to acute cholecystitis. No biliary dilatation. No evidence for acute appendicitis. No ascites. Plan Discharge Plan: Underwent laparoscopic cholecystectomy. Did well postoperatively. Patient has been discharged home in good condition. She will follow-up at [facility] in 2 weeks. She is to call for any concerns.
[2018-11-21 15:29] VITALS: BP 133/70
== END 2018-11-21 16:00 | disposition home or self-care (01) ==
LOC: ER 19:22 → INTOOBSV 22:26 → EH 22:26 → 2N 23:50
PROVIDERS: ADMIT Surgery; ATTEND Surgery
PROC: 0FT44ZZ Resection of Gallbladder, Percutaneous Endoscopic Approach (ICD-10-PCS; principal; 2018-11-21 09:00)
DX: K80.12 Calculus of gallbladder with acute and chronic cholecystitis without obstruction (principal); F17.200 Nicotine dependence, unspecified, uncomplicated; Z79.3 Long term (current) use of hormonal contraceptives; Z79.899 Other long term (current) drug therapy
CPT/HCPCS: 99285; 86900; 86901; 36415 ×2; 86850; 83690; 85027; 87070; 81001; 88304 ×2; 74177; 00790; 47562; G0378 ×2; J2250; J3490 ×5; J1100; J3480; J1885; J3010; J2270 ×2; J2710; J2405; J2704; S0028; J0690; 790

== ENCOUNTER 2019-05-10 21:21 | Emergency (ER) | payer SELFPAY ==
[2019-05-10] MEDS ORDERED: NORMAL SALINE 1000 ML 1,000 ML IV ONE (21:50)
[2019-05-10] MEDS ORDERED: ONDANSETRON HCL INJ/PF 4 MG/2 ML SDV IV ONE (21:50)
--- NOTE | 2019-05-10 22:06 | ER Document Report ---
ED Medical Screen (RME) - General Chief Complaint: Nausea/Vomiting Stated Complaint: VOMITING Time Seen by Provider: 05/10/19 21:47 Mode of Arrival: Ambulatory Information source: Patient Notes: Otherwise healthy 28-year-old female presenting to the emergency department with 8-day history of vomiting. Patient reports she was having diarrhea however that has now resolved. She denies any fever or abdominal pain. She states that she is vomiting no matter what she tries to eat or drink. Lung sounds clear and equal bilaterally, patient in no acute distress at this time. I have greeted and performed a rapid initial assessment of this patient. A comprehensive ED assessment and evaluation of the patient, analysis of test results and completion of the medical decision making process will be conducted by additional ED providers. I have specifically instructed the patient or family members with the patient to immediately return to any nursing staff should anything change in the patient's condition or with their chief complaint. TRAVEL OUTSIDE OF THE [place] IN LAST 30 DAYS: No - Related Data Allergies/Adverse Reactions: No Known Allergies Allergy (Verified 11/20/18 19:24) Home Medications: BCPs Past Medical History - Social History Chew tobacco use (# tins/day): No Frequency of alcohol use: Rare Drug Abuse: None Renal/ Medical History: Denies: Hx Peritoneal Dialysis Musculoskeltal Medical History: Reports Hx Musculoskeletal Deformity, Reports Hx Musculoskeletal Trauma Past Surgical History: Reports: Hx Orthopedic Surgery - L knee - Immunizations Hx Diphtheria, Pertussis, Tetanus Vaccination: No Physical Exam - Vital signs Vitals: Temp Pulse Resp BP Pulse Ox 98.4 F 73 20 144/67 H 98 05/10/19 21:44 05/10/19 21:44 05/10/19 21:44 05/10/19 21:44 05/10/19 21:44 Course - Vital Signs Vital signs: Temp Pulse Resp BP Pulse Ox 98.4 F 73 20 144/67 H 98 05/10/19 21:44 05/10/19 21:44 05/10/19 21:44 05/10/19 21:44 05/10/19 21:44
[2019-05-10 22:30] LABS: ABSOLUTE LYMPHOCYTES (AUTO) 2.1 10^3/uL (0.5-4.7); ABSOLUTE MONOCYTES (AUTO) 0.5 10^3/uL (0.1-1.4); ABSOLUTE NEUT (AUTO) 4.6 10^3/uL (1.7-8.2); BASOPHILS % (AUTO) 0.3 % (0-2); EOSINOPHILS % (AUTO) 0.3 % (0-6); HEMATOCRIT 34.8 % (36.0-47.0); HEMOGLOBIN 11.8 g/dL (12.0-15.5); LYMPHOCYTES % (AUTO) 28.9 % (13-45); MEAN CORPUSCULAR HEMOGLOBIN 29.6 pg (27.0-33.4); MEAN CORPUSCULAR HGB CONC 33.8 g/dL (32.0-36.0); MEAN CORPUSCULAR VOLUME 88 fl (80-97); MONOCYTES % (AUTO) 6.3 % (3-13); PLATELET COUNT 219 10^3/uL (150-450); RED BLOOD COUNT 3.97 10^6/uL (3.72-5.28); RED CELL DISTRIBUTION WIDTH 12.7 % (11.5-14.0); SEGMENTED NEUTROPHILS % (AUTO) 64.2 % (42-78); TOTAL CELLS COUNTED % (AUTO) 100 %; WHITE BLOOD COUNT 7.2 10^3/uL (4.0-10.5)
[2019-05-10 22:46] LABS: APPEARANCE,URINE CLOUDY; BILIRUBIN,URINE NEGATIVE (NEGATIVE); COLOR,URINE AMBER; GLUCOSE, URINE NEGATIVE (NEGATIVE); KETONES,URINE TRACE mg/dL (NEGATIVE); LEUKOCYTE ESTERASE,URINE TRACE (NEGATIVE); NITRITE,URINE NEGATIVE (NEGATIVE); PROTEIN,URINE 100 mg/dL (NEGATIVE); URINE SPECIFIC GRAVITY 1.035
[2019-05-10 22:47] LABS: ALBUMIN 3.8 g/dL (3.5-5.0); ALKALINE PHOSPHATASE 102 U/L (38-126); ANION GAP 8 (5-19); ASPARTATE AMINO TRANSFERASE 61 U/L (14-36); BILIRUBIN,DIRECT 0.3 mg/dL (0.0-0.4); BILIRUBIN,TOTAL 0.9 mg/dL (0.2-1.3); BLOOD UREA NITROGEN 7 mg/dL (7-20); CALCIUM 8.8 mg/dL (8.4-10.2); CARBON DIOXIDE 28 mmol/L (22-30); CHLORIDE 104 mmol/L (98-107); GLUCOSE 115 mg/dL (75-110); POTASSIUM 3.7 mmol/L (3.6-5.0); TOTAL PROTEIN 7.6 g/dL (6.3-8.2)
[2019-05-11] MEDS ORDERED: SUCRALFATE 1 GM TABLET PO ONE (02:11)
[2019-05-11] MEDS ORDERED: FAMOTIDINE 20 MG TABLET PO ONE (02:11)
[2019-05-11] MEDS ORDERED: HYDROCODONE/ACETAMINOPHEN 5-325 MG (6 TAB/ER DISP) PO PRN (02:11)
--- NOTE | 2019-05-11 02:15 | ER Document Report ---
ED GI/ - General Chief Complaint: Nausea/Vomiting Stated Complaint: VOMITING Time Seen by Provider: 05/10/19 21:47 Mode of Arrival: Ambulatory Notes: Patient is a 28-year-old female that comes to the emergency department for chief complaint of upper abdominal pain and vomiting. She states she has intermittent nausea, cramping, and pain which will occasionally cause her to vomit. She vomited more than once today. She states she had her gallbladder out, she denies any other surgeries. She denies frequent alcohol, recreational drugs, she does report very frequent caffeine, denies frequent anti-inflammatories. She denies any prescribed any medications. LMP within the past month. She denies lower abdominal pain, dysuria, vaginal discharge or bleeding, flank pain, chest pain. She states pain is worse in her left upper quadrant (she points). TRAVEL OUTSIDE OF THE [place] IN LAST 30 DAYS: No - Related Data Allergies/Adverse Reactions: No Known Allergies Allergy (Verified 11/20/18 19:24) Home Medications: BCPs Past Medical History - General Information source: Patient - Social History Smoking Status: Former Smoker Chew tobacco use (# tins/day): No Frequency of alcohol use: Rare Drug Abuse: None Lives with: Family Family History: Hypertension Patient has suicidal ideation: No Patient has homicidal ideation: No Renal/ Medical History: Denies: Hx Peritoneal Dialysis Musculoskeletal Medical History: Reports Hx Musculoskeletal Deformity, Reports Hx Musculoskeletal Trauma Past Surgical History: Reports: Hx Cholecystectomy, Hx Orthopedic Surgery - L knee - Immunizations Hx Diphtheria, Pertussis, Tetanus Vaccination: No Review of Systems - Review of Systems Constitutional: No symptoms reported EENT: No symptoms reported Cardiovascular: No symptoms reported Respiratory: No symptoms reported Gastrointestinal: See HPI Genitourinary: No symptoms reported Female Genitourinary: No symptoms reported Musculoskeletal: No symptoms reported Skin: No symptoms reported Hematologic/Lymphatic: No symptoms reported Neurological/Psychological: No symptoms reported Physical Exam - Vital signs Vitals: Temp Pulse Resp BP Pulse Ox 98.4 F 73 20 144/67 H 98 05/10/19 21:44 05/10/19 21:44 05/10/19 21:44 05/10/19 21:44 05/10/19 21:44 - Notes Notes: GENERAL: Alert, interacts well. No acute distress. Smiling and well-appearing HEAD: Normocephalic, atraumatic. EYES: Pupils equal, round, and reactive to light. Extraocular movements intact. ENT: Oral mucosa moist, tongue midline. Oropharynx unremarkable. Airway patent. LUNGS: Clear to auscultation bilaterally, no wheezes, rales, or rhonchi. No respiratory distress. HEART: Regular rate and rhythm. No murmur ABDOMEN: Soft, non-tender. Non-distended. Bowel sounds present in all 4 quadrants. GENITOURINARY: Deferred EXTREMITIES: Moves all 4 extremities spontaneously. No edema, normal radial and dorsalis pedis pulses bilaterally. No cyanosis. BACK: no cervical, thoracic, lumbar midline tenderness. No saddle anesthesia, normal distal neurovascular exam. Moves all extremities in full range of motion. NEUROLOGICAL: Alert and oriented x3. Normal speech. Cranial nerves II through XII grossly intact. PSYCH: Normal affect, normal mood. SKIN: Warm, dry, normal turgor. No rashes or lesions noted. Course - Re-evaluation Re-evalutation: CBC unremarkable. Chemistry does show slightly elevated LFTs but bilirubin is normal, lipase normal, and her abdomen is completely benign and nontender. Patient has no current complaints. Specifically the upper abdomen is nontender. Patient has had a cholecystectomy. Patient was also very dehydrated initially, her has received IV fluids. Afterwards she states she feels great. Based on her lack of symptoms, benign exam, I do not feel an ultrasound is indicated and I have low suspicion of obstruction or acute abdomen. In addition to this based on patient's descriptions of intermittent symptoms, lifestyle/diet choices, and her work-up I suspect strongly this is a gastritis/upper gastrointestinal cause. I discussed all details with patient at length. Culture of the urine was placed, treating her for upper gastrointestinal inflammation, she will follow-up with primary care for additional management. Discussed return precautions in detail. Patient has tolerated p.o. without any difficulty or return of symptoms. Stable at time of discharge. - Vital Signs Vital signs: Temp Pulse Resp BP Pulse Ox 98.3 F 58 L 58 H 119/64 98 05/11/19 02:28 05/11/19 02:28 05/11/19 02:28 05/11/19 02:28 05/11/19 02:28 - Laboratory Result Diagrams: 05/10/19 22:15 05/10/19 22:15 Laboratory results interpreted by me: 05/10/19 05/10/19 05/10/19 22:00 22:15 22:15 Hgb 11.8 L Hct 34.8 L Glucose 115 H AST 61 H ALT 79 H Lipase 10.9 L Urine Protein 100 H Urine Ketones TRACE H Urine Urobilinogen 4.0 H Ur Leukocyte Esterase TRACE H Discharge - Discharge Clinical Impression: Upper abdominal pain Vomiting Qualifiers: Vomiting type: unspecified Vomiting Intractability: non-intractable Nausea presence: with nausea Qualified Code(s): R11.2 - Nausea with vomiting, unspecified Condition: Stable Disposition: HOME, SELF-CARE Additional Instructions: Your work-up is reassuring. Your symptoms and examination indicate gastritis/esophagitis (inflammation of your upper gastrointestinal tract). Take Phenergan for nausea, take Carafate and Pepcid as prescribed to help treat this, you can take additional Rolaids, Tums, Maalox, etc. if needed. You can take the provided medication or simply Tylenol for pain. Avoid NSAIDs, alcohol, smoking, caffeine, spicy food. Start with clear fluids, progress to bland diet. Follow-up with primary care for additional evaluation and treatment including possible H. pylori testing. Return if you worsen including uncontrolled vomiting, vomiting blood, black stools, severe pain, fever of 100.4 or greater, or any other concerning or worsening symptoms. Prescriptions: Sucralfate [Carafate 1 gm Tablet] 1 gm PO QID #20 tablet Famotidine [Pepcid 20 mg Tablet] 20 mg PO BID #14 tablet Promethazine HCl [Phenergan 25 mg Tablet] 25 mg PO Q6H PRN #15 tablet PRN Reason: Forms: Return to Work
[2019-05-11 02:31] VITALS: BP 119/64
== END 2019-05-11 02:28 | disposition home or self-care (01) ==
LOC: ER 21:21
DX: R10.10 Upper abdominal pain, unspecified (principal); R11.2 Nausea with vomiting, unspecified; Z90.49 Acquired absence of other specified parts of digestive tract
CPT/HCPCS: 99283; 96361; 96374; 36415; 83690; 85025; 81025; 80053; 81001; J2405; J7030